=== PATIENT | male | born 1945 | race Caucasian/White ===

== ENCOUNTER 2020-06-17 06:53 | Outpatient (NON) | payer MEDICARE, SELFPAY ==
[2020-06-18 13:43] LABS: SARS-CoV-2 RNA PCR Negative
== END 2020-06-17 06:54 ==
PROVIDERS: Visit Provider Physician Assistant Medical
DX: Z20.828 Contact with and (suspected) exposure to other viral communicable diseases (principal); R09.81 Nasal congestion
CPT/HCPCS: 87635; C9803; U0003

== ENCOUNTER 2021-08-08 01:05 | Day surgery (SDC) | payer MEDICARE, SELFPAY ==
[2021-07-24 13:28] VITALS: BMI 31.4
[2021-08-08 08:09] VITALS: BP 149/95; PULSE 59; RESP 18; TEMP 35.9; O2SAT 100
[2021-08-08] MEDS: LACTATED RINGERS 1,000 ML 150 ML IV CONT (08:15)
--- NOTE | 2021-08-08 08:18 | WPDANESEPPF ---
Anes - Initial Pre Proc Eval Procedure: Operation Date: 08/08/21 09:30 Proposed Procedures p Colonoscopy - Gatito Regalado MD Date/Time: 08/08/21 08:18 Surgeon: Gatito Regalado MD Pre Op Diagnosis: positive cologuard Patient Data Age: 76 Gender: M Height: 1.85 m Weight: 107.1 kg Last Vital Signs Temp 35.9 C L 08/08/21 08:09 Pulse 59 L 08/08/21 08:09 Resp 18 08/08/21 08:09 BP 149/95 H 08/08/21 08:09 Pulse Ox 100 08/08/21 08:09 Allergies Allergy/AdvReac Type Severity Reaction Status Date / Time No Known Allergies Allergy Verified 08/08/21 08:08 Home Medications Medication Instructions Recorded Confirmed Type amlodipine 5 mg tablet See Rx Instructions .ROUTE 10/11/20 08/08/21 Rx .COMPLEX #90 tablet lisinopril 20 mg tablet See Rx Instructions .ROUTE 10/11/20 08/08/21 Rx .COMPLEX #90 tablet allopurinol 300 mg tablet See Rx Instructions .ROUTE 10/31/20 08/08/21 Rx .COMPLEX #90 tablet Patient hx anesthesia problems: none Family hx anesthesia problems: none Results Review: All pre-operative results and documents have been reviewed as part of the pre-operative evaluation. [facility] Past Medical History Medical History Basal cell carcinoma CKD (chronic kidney disease) stage 3, GFR 30-59 ml/min Obesity (BMI 30.0-34.9) Rosacea, acne Surgical History Surgical History (Updated 08/08/21 @ 08:22 by Hang Smart MD) H/O colonoscopy Family History Family History Mother Acute myocardial infarction, Onset Age: 73 Social History Social History Smoking status: Never smoker Alcohol intake: current Drinks per week: 1 Alcohol use details: occasionally Substance use: never Substance use type: does not use Living arrangements: with family Spiritual care concerns: No Anes - Eval Final PreProcedure Day of Procedure 01/18/22 08:18 Patient weight: obese Heart: regular rate and rhythm Lungs: clear to auscultation Airway: Mallampati scale class II and special considerations poor dentition Neurological: alert and oriented Last oral intake: >/= 8 hours ASA classification: III Emergent: no Anesthetic plan: proceed Anesthesia type and monitoring: general GIVS and standard monitoring Results Review: All pre-operative results and documents have been reviewed as part of the pre-operative evaluation. Informed Consent: The patient's anesthetic plan and its attendant risks and benefits were discussed with the patient/family/POA. Questions were solicited and answers provided to the satisfaction of the patient/family/POA.
--- NOTE | 2021-08-08 08:45 | WPDGICN ---
Assessment and Plan Assessment and plan (1) Positive colorectal cancer screening using Cologuard test: Code(s): R19.5 - Other fecal abnormalities Status: Acute Assessment and Plan: Patient presents for screening colonoscopy because of positive Cologuard test. Further recommendations will be given after endoscopy. GI Consult Note Consult date/time: 08/08/21 08:45 HPI: Ibrahima Martinez Jr. is a 76 year old male Presents for screening colonoscopy. Patient recently found to have positive screening Cologuard test. Patient reports that his current weight appetite and bowel movements are normal. He denies abdominal pain. He has had no bleeding. Family history is noncontributory. Review of Systems Review of Systems: All systems reviewed & are unremarkable except as noted in HPI and below PMFSH Past Medical History Medical History (Updated 08/08/21 @ 08:46 by Gatito Regalado MD) Basal cell carcinoma CKD (chronic kidney disease) stage 3, GFR 30-59 ml/min Obesity (BMI 30.0-34.9) Rosacea, acne Surgical History Surgical History (Updated 08/08/21 @ 08:22 by Hang Smart MD) H/O colonoscopy Family History Family History Mother Acute myocardial infarction, Onset Age: 73 Social History Social History Smoking status: Never smoker Alcohol intake: current Drinks per week: 1 Alcohol use details: occasionally Substance use: never Substance use type: does not use Living arrangements: with family Spiritual care concerns: No Meds Home Medications and Allergies Home Medications Medication Instructions Recorded Confirmed Type amlodipine 5 mg tablet See Rx Instructions .ROUTE 10/11/20 08/08/21 Rx .COMPLEX #90 tablet lisinopril 20 mg tablet See Rx Instructions .ROUTE 10/11/20 08/08/21 Rx .COMPLEX #90 tablet allopurinol 300 mg tablet See Rx Instructions .ROUTE 10/31/20 08/08/21 Rx .COMPLEX #90 tablet Allergies Allergy/AdvReac Type Severity Reaction Status Date / Time No Known Allergies Allergy Verified 08/08/21 08:08 Vital Signs Vital Signs - 24 hr 08/08/21 08:09 Temperature 96.7 F L Pulse Rate 59 L Respiratory Rate 18 Blood Pressure 149/95 H Pulse Oximetry 100 Exam Narrative: Physical exam reveals patient to be alert. Vital signs stable. HEENT exam is unremarkable. Patient is anicteric. Lungs are clear to auscultation and percussion. Heart is without murmur or extra sounds. Abdominal exam bowel sounds are present soft nontender with no organomegaly. Digital external rectal exam is normal.
[2021-08-08 09:52] VITALS: BP 131/73; PULSE 51; RESP 19; O2SAT 99
[2021-08-08 10:02] VITALS: BP 115/76; PULSE 54; RESP 16; O2SAT 99
[2021-08-08 10:12] VITALS: BP 148/87; PULSE 59; RESP 19; O2SAT 100
== END 2021-08-08 10:22 | disposition home or self-care (01) ==
PROVIDERS: PCP Family Medicine; Visit Provider Internal Medicine Gastroenterology
PROC: 0DJD8ZZ Inspection of Lower Intestinal Tract, Via Natural or Artificial Opening Endoscopic (ICD-10-PCS; CPT 45378; principal; 2021-08-08 09:30)
DX: R19.5 Other fecal abnormalities (principal); K63.5 Polyp of colon; K57.30 Diverticulosis of large intestine without perforation or abscess without bleeding; K64.8 Other hemorrhoids; Z85.828 Personal history of other malignant neoplasm of skin; N18.30 Chronic kidney disease, stage 3 unspecified; L71.9 Rosacea, unspecified; E66.9 Obesity, unspecified; Z68.31 Body mass index [BMI] 31.0-31.9, adult
CPT/HCPCS: 45385; 88305; J2704; J7120

== ENCOUNTER 2022-07-26 09:38 | Outpatient (CLI) | payer MEDICARE, SELFPAY ==
--- NOTE | 2022-07-26 09:51 | ECHO_ITS ---
Patient Info Name: Ibrahima Martinez Age: 77 years : 1945 Gender: Male Ht: 72 in Wt: 228 lbs BSA: 2.32 m2 HR: 59 bpm BP: 134 / 82 mmHg Technical Quality: Good Exam Date: 07/26/2022 10:16 AM Exam Location: [facility] Patient Status: Outpatient Admit Date: 07/26/2022 Staff Ordering Physician: Alexander Arciniega MD Building Construction Professor: Marie Mcgowan RDCS Attending Provider: Alexander Arciniega MD Referring Physician: Suze MANDUJANO; Exam Type: CA echo doppler color flow Study Info Indications R01.1 - Cardiac murmur, unspecified Complete two-dimensional, color flow and Doppler transthoracic echocardiogram is performed. Summary 1. Complete two-dimensional, color flow and Doppler transthoracic echocardiogram is performed. 2. Left ventricular chamber dimension is normal. 3. Left ventricular systolic function is normal, estimated at 55-60%. 4. The left ventricular diastolic function is grade I diastolic dysfunction. 5. E/e' 10 is mildly elevated. 6. There is mild aortic valve sclerosis. Left Ventricle E/e' 10 is mildly elevated. Left ventricular chamber dimension is normal. Left ventricular systolic function is normal, estimated at 55-60%. The left ventricular diastolic function is grade I diastolic dysfunction. Right Ventricle Right ventricular systolic function is normal and with normal TAPSE 1.8 cm. Right ventricular chamber dimension is normal. Left Atria Left atrial chamber dimension is normal. Right Atria Right atrial chamber dimension is normal. Aortic Valve The aortic valve is trileaflet. There is mild aortic valve sclerosis. There is no aortic valve stenosis. There is no aortic valve regurgitation. Pulmonic Valve There is no pulmonic regurgitation. Mitral Valve There is no mitral valve stenosis. There is no mitral valve regurgitation. Tricuspid Valve There is no tricuspid valve regurgitation. Pericardium/Pleural There is no pericardial effusion. Inferior Vena Cava Normal inferior vena cava with >50% collapse upon inspiration consistent with normal right atrial pressure, 5 mmHg. Aorta The aortic root size at the sinus of Valsalva is normal. Left Ventricular Outflow Tract Name Value Normal LVOT 2D LVOT Diameter 2.3 cm LVOT Doppler LVOT Peak Gradient 4 mmHg LVOT Mean Gradient 2 mmHg LVOT VTI 19 cm LVOT VTI/AV VTI Ratio 0.8 LVOT Stroke Volume 81 ml LVOT CO 5.1 l/min LVOT CI 2.2 l/min/m2 Mitral Valve Name Value Normal MV Doppler MV Peak Gradient 4 mmHg MV Mean Gradient 1 mmHg MV Decel Weakley 243 cm
== END 2022-07-26 09:39 | disposition home or self-care (01) ==
LOC: ANHCARD 09:39
PROVIDERS: PCP Family Medicine; Visit Provider Family Medicine
DX: R01.1 Cardiac murmur, unspecified (principal); R42 Dizziness and giddiness; I35.8 Other nonrheumatic aortic valve disorders
CPT/HCPCS: 93306

== ENCOUNTER 2022-11-21 09:53 | Outpatient (CLI) | payer MEDICARE, SELFPAY | END 2022-11-21 09:54 | disposition home or self-care (01) | LOC: ANHAUDIO 09:55 | PROVIDERS: PCP Family Medicine; Visit Provider Family Medicine | DX: H90.3 Sensorineural hearing loss, bilateral (principal) | CPT/HCPCS: 92557; 92567 ==

== ENCOUNTER 2022-11-23 08:36 | Outpatient (CLI) | payer MEDICARE, SELFPAY ==
--- NOTE | ~2022-11-23 | MR_ITS ---
MRI of the brain Clinical History: Unsteady gait Technique: Axial and sagittal T1-weighted images were acquired. These were followed by axial T2-weigh vilma, diffusion weighted, gradient, and FLAIR images. Findings: There is no acute infarct or intracranial hemorrhage. There are mild to moderate chronic mi crovascular ischemic changes in the periventricular white matter bilaterally, and in the erich. Ventricles and subarachnoid spaces are dilated. Orbits are unremarkable. There is minimal mucosal thi ckening in the frontal sinuses and left sphenoid sinus. Major intracranial flow voids are intact. Pituitary gland is prominent, especially given patient age, measuring 2.0 x 1.4 cm in dimensions on s agittal midline image (sagittal T1-weighted image 15). There is mild extension of the gland into the suprasellar cistern. Sagittal midline structures otherwise are intact. IMPRESSION: Probable enlarged pituitary gland, with minimal extension to the suprasellar cistern, as detailed abo ve. Pituitary mass is a consideration. Dedicated pre and postcontrast pituitary MR should be strongly considered to better evaluate for mass lesion, if clinically indicated. Mild to moderate chronic microvascular ischemic changes, as above. Reviewed, dictated and finalized at location . IMPRESSION: Probable enlarged pituitary gland, with minimal extension to the suprasellar ci sal, as detailed above. Pituitary mass is a consideration. Dedicated pre and postcontrast pituitary MR should be strongly considered to better evaluate for mass lesion, if clinically indicated. Mild to moderate chronic microvascular ischemic changes, as above.
== END 2022-11-23 08:37 | disposition home or self-care (01) ==
PROVIDERS: PCP Family Medicine; Visit Provider Family Medicine
DX: R27.0 Ataxia, unspecified (principal); R93.0 Abnormal findings on diagnostic imaging of skull and head, not elsewhere classified
CPT/HCPCS: 70551

== ENCOUNTER 2022-11-30 08:43 | Outpatient (CLI) | payer MEDICARE, SELFPAY ==
--- NOTE | ~2022-11-30 | MR_ITS ---
EXAMINATION: MR pituitary wo/w con DATE: 11/30/2022 10:11 INDICATION: Other symptoms and signs involving cognition. Large pituitary. TECHNIQUE: Magnetic resonance imaging (MRI) of the brain and brainstem was performed without and with 20 mL MultiHance intravenous contrast. COMPARISON: Brain MRI 11/23/2022 FINDINGS: The pituitary is enlarged with height of 16 mm. There is a 16 x 12 x 20 mm hypoenhancing ma ss in the pituitary. No cavernous sinus invasion. There is leftward deviation of the infundibulum. Th ere is no acute ischemic infarct or intracranial hemorrhage. There are scattered areas of nonspecific increased T2-weighted signal intensity in the cerebral white matter and erich. The ventricles are nor mal in size. There is mild mucosal thickening in the paranasal sinuses. The orbits are normal. There is a trace right mastoid effusion. IMPRESSION: 1. 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 2. Moderate nonspecific cerebral white matter disease and pontine disease, which likely represents ch ronic small vessel ischemic disease. Reviewed, dictated and finalized at location E. IMPRESSION: 1. 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 2. Moderate nonspecific cerebral white matter disease and pontine disease, whic h likely represents chronic small vessel ischemic disease.
== END 2022-11-30 08:44 | disposition home or self-care (01) ==
PROVIDERS: PCP Family Medicine; Visit Provider Family Medicine
DX: E23.6 Other disorders of pituitary gland (principal); R41.89 Other symptoms and signs involving cognitive functions and awareness; R90.82 White matter disease, unspecified
CPT/HCPCS: 70553; A9577

== ENCOUNTER 2023-02-09 15:29 | Inpatient (IN) | payer MEDICARE, SELFPAY ==
[2023-02-09] VITALS (7 sets, daily range): BP systolic 119–143; BP diastolic 64–85; PULSE 69–119; RESP 18–20; TEMP 36.8–38.6; O2SAT 97–100; BMI 29.2
--- NOTE | ~2023-02-09 | CT_ITS ---
EXAMINATION: CT brain wo con DATE: 02/09/2023 15:47 INDICATION: r/o CVA . TECHNIQUE: Computed tomography (CT) of the head was performed without intravenous contrast. The mA wa s adjusted according to patient size. Iterative reconstruction technique was employed. The dose-lengt h product was 1210.67 mGy-cm. COMPARISON: MRI brain 11/23/2022; MR pituitary 11/30/2022. FINDINGS: No acute intracranial hemorrhage or extra-axial fluid collection. No hydrocephalus or herniation. Enlarged pituitary gland. No acute ischemic infarct. Unremarkable dural venous sinus attenuation. No acute osseous abnormality. Mucosal thickening and aerated secretions in the inferior bilateral frontal sinuses. Mucosal thickeni ng in the ethmoid air cells. Mucosal thickening and aerated secretions in the left sphenoid sinus. Re tention cyst or polyp in the right sphenoid sinus. The remaining aerated spaces are clear. Moderate atrophy and chronic white matter change. Atherosclerotic intracranial calcification. IMPRESSION: No acute intracranial process. Paranasal sinus findings may reflect acute sinusitis in the appropriate clinical context. 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 Reviewed, dictated and finalized at location K. IMPRESSION: No acute intracranial process. Paranasal sinus findings may reflect acute sinusitis in the appropriate clinica l context. 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
--- NOTE | ~2023-02-09 | XR_ITS ---
MODIFIED ESOPHAGRAM HISTORY: Weakness and dysphagia TECHNIQUE: Modified barium esophagram was performed by speech pathologist under radiologist fluorosco pic guidance. This was recorded on tape. The exam was reviewed on 02/10/2023 11:43 CDT. The DAP for this procedure was 0.5 Gycm2. Fluoroscopy time is 0.6 minutes. FINDINGS: Lateral projection of the cervical spine demonstrates reversal of normal cervical lordosi s. There is reduced laryngeal elevation, laryngeal adduction, tongue base retraction and pharyngeal s queeze. There is reduced lingual movement. There is residue in the vallecula, piriform sinus and phar yngeal wall. There is laryngeal penetration with thin and thick liquids with aspiration. IMPRESSION: 1: Laryngeal penetration with aspiration with multiple consistencies. 2: Please refer to speech pathologist report for additional detail. Reviewed, dictated and finalized at location A.
--- NOTE | ~2023-02-09 | XR_ITS ---
EXAMINATION: XR chest 1V portable Exam Date/Time: 02/09/2023 16:29 CDT HISTORY: r/o CVA Comparison: None. RESULT: Lines, tubes, and devices: None. Lungs and pleura: Senescent changes, otherwise clear. Cardiomediastinal silhouette: Unremarkable. Other: No acute osseous or upper abdominal finding. IMPRESSION: No acute cardiopulmonary process. Reviewed, dictated and finalized at location K.
--- NOTE | ~2023-02-09 | MR_ITS ---
EXAMINATION: MR brain/brain stem wo con DATE: 02/10/2023 07:15 INDICATION: Neurologic signs and symptoms TECHNIQUE: Magnetic resonance imaging (MRI) of the brain and brainstem was performed without intraven ous contrast. Sequences included sagittal and axial T1-weighted SE, axial diffusion-weighted FS SE, a xial T2*-weighted GRE, axial T2-weighted FLAIR Propeller, and axial T2-weighted Propeller. Apparent d iffusion coefficient (ADC) maps were created. COMPARISON: CT dated 02/09/2023. FINDINGS: Brain parenchymal volume is normal for age. No ventriculomegaly or midline shift. No acute infarction, hemorrhage, mass or mass effect. Structures of the posterior fossa including the seventh/ 8th cranial nerve complexes are normal. There are scattered mild periventricular and subcortical whit e matter changes, most likely related to small vessel ischemic disease (microangiopathy). Pituitary g land is enlarged. There is a focal area of abnormal signal intensity in the pituitary, corresponding to a pituitary macroadenoma seen on prior MRI dated 11/30/2022 midline sagittal images demonstrate a n ormal craniovertebral junction. Corpus callosum is atrophic. No ventriculomegaly or midline shift. St ructures of the posterior fossa including 7/8th cranial nerve complexes are normal. Orbits are symmet mckenna without disconjugate gaze. There is mild mucosal thickening of the frontal, ethmoid and sphenoid sinuses. IMPRESSION: 1. No acute intracranial abnormality. 2: Pituitary macroadenoma unchanged allowing for differences of technique. 3: Mild sinus disease. 4: Chronic age-related findings. Reviewed, dictated and finalized at location A.
--- NOTE | ~2023-02-09 | CT_ITS ---
EXAMINATION: CTA brain carotid DATE: 02/09/2023 16:21 INDICATION: r/o CVA TECHNIQUE: Computed tomographic angiography (CTA) of the head and neck was performed with 100 mL Omni paque-350 intravenous contrast. Automated exposure control and iterative reconstruction technique wer e employed. The dose-length product was 1278.76 mGy-cm. Maximum intensity projection and volume rende red 3D-reconstructions were created by the technologist on a separate workstation. COMPARISON: CT brain same date. FINDINGS: CTA HEAD: No large vessel occlusion, aneurysm, high flow vascular malformation, nidus or extravasation. CTA NECK: Aortic arch and proximal great vessels: Mild ectasia and arch calcification. Normal arch anatomy. Right common carotid, carotid bifurcation, and internal carotid artery: Motion artifact partially obs cures the bifurcation. NASCET measurements not attempted. No definite calcified or noncalcified plaqu e is detected. Left common carotid, carotid bifurcation, and internal carotid artery: Mild calcified and noncalcifie d plaque.There is 0% stenosis of the proximal left internal carotid artery relative to normal distal artery lumen diameter (NASCET criteria). Vertebral arteries: Calcified and noncalcified plaque at the origin of the left vertebral artery caus ing mild stenosis. No significant (greater than 75%) plaque or stenosis. Other findings: Multilevel degenerative disc disease and facet arthropathy in the cervical spine. IMPRESSION: No large vessel occlusion. No significant carotid or vertebral artery stenosis, noting that evaluation of the right bifurcation is limited by motion artifact. Reviewed, dictated and finalized at location K.
--- NOTE | 2023-02-09 15:29 | ECG_ITS ---
Measurements Intervals Nice Rate: 70 P: 50 ME: 227 QRS: -24 QRSD: 106 T: 82 QT: 432 QTc: 467 Interpretive Statements SINUS RHYTHM WITH FIRST DEGREE AV BLOCK EARLY PRECORDIAL R/S TRANSITION ST-T WAVE ABNORMALITY IN ANTERIOR LEADS- CONSIDER ISCHEMIA BASELINE ARTIFACT- I, II, III, AVF, V1-V6 ABNORMAL ECG NO PREVIOUS ECG AVAILABLE FOR COMPARISON Electronically Signed On 02-09-2023 21:57:12 CDT by Cody Contreras D.O.
--- NOTE | 2023-02-09 15:31 | ED.NEUROSD ---
HPI - Neuro Symptoms/Deficit General Chief Complaint: Suspected CVA Stated Complaint: code stroke Time Seen by Provider: 02/09/23 15:31 History of Present Illness HPI Narrative: 77 year old male presented with acute onset confustion. Per EMS, patient was at a bb today when all of a sudden he had acute onset confusion. Family were concerned, so called EMS. Last well known time 3:00pm. POC glucose 80s. ROS limited due to condition Past Medical History: pituitary tumor, HTN Medications: amlodipine Allergies: no known drug allergies Related Data Home Medications Medication Instructions Recorded Confirmed levothyroxine 75 mcg capsule 75 mcg PO DAILY 02/04/23 02/04/23 Allergies Allergy/AdvReac Type Severity Reaction Status Date / Time No Known Allergies Allergy Verified 02/09/23 16:32 [facility] Past Medical History Medical History Basal cell carcinoma CKD (chronic kidney disease) stage 3, GFR 30-59 ml/min Obesity (BMI 30.0-34.9) Rosacea, acne Surgical History Surgical History H/O colonoscopy Family History Family History Mother Acute myocardial infarction, Onset Age: 73 Social History Social History Smoking status: Never smoker Alcohol intake: current Drinks per week: 1 Alcohol use details: occasionally Substance use: never Substance use type: does not use Lack of Transportation: No Lack of Food: Never True Current Housing: I Have Housing Concerned About Future Housing: No Difficulty Paying Gas/Electric Bills: No Difficulty Paying for Meds: No Currently Unemployed: No Education: Master's Degree or Higher Difficulty w/ Childcare or Family Care: No Living arrangements: with family Spiritual care concerns: No Exam Narrative: General: Alert, calm and cooperative, no acute distress, phonating, sitting comfortably during visit HEENT: Pupils equal round and reactive to light, extra ocular movements intact, no conjunctival injection, head atraumatic, neck supple without meningismus Cardiovascular: Regular rate and rhythm, no visible jugular venous distension Respiratory: Lungs clear to auscultation bilaterally, no wheezing/rales/rhonchi Abdominal: soft, non-tender, non-distended, no guarding, no rebound/peritoneal signs, no costovertebral tenderness to palpation Back: no midline tenderness to palpation, no step offs Extremities: No edema, palpable peripheral pulses, warm, well perfused, no tenderness to bilateral calves Neurological: Alert, moving all extremities symmetrically, mumbling Course Reevaluation(s) Reevaluation #1: Further information obtained from family. They report that the patient was in his usual state of health until 3:00 pm, at this time, he began looking in one direction and moving his extremities without purpose. They report that patient had recent diagnosis of pituitary tumor diagnosed several months prior. Date: 02/09/23 Time: 15:43 Reevaluation #2: Patient reassessed after coming back from CT - moving all extremities symmetrically, holding extremities up on request. Patient with intermittent confusion and intermittently following commands. Seizure and post ictal state more likely at this time Date: 02/09/23 Time: 16:19 Consultations Consultation #1: [facility] stroke team called, given patient has established care there and family preference. Date: 02/09/23 Time: 16:16 Consultation #2: Case discussed Dr Perry at [facility], not concerned for stroke at this time. Tox vs infectious vs seizure. Reports appropriate for admission and further neurology follow up in [place]. Date: 02/09/23 Time: 16:27 Consultation #3: CAse discussed with Neurologist israel, agrees with admission and MRI + EEG here Date: 02/09/23 Time: 17:01 Vi
[2023-02-09 16:29] LABS: Alanine Aminotransferase 21 U/L (6-50); Alkaline Phosphatase 40 U/L (38-126); Anion Gap 13 mmol/L (8-16); Aspartate Amino Transferase 27 U/L (17-59); Bilirubin,Total 2.7 mg/dL (0.2-1.3); Blood Urea Nitrogen 24 mg/dL (9-20); Calcium 9.7 mg/dL (8.4-10.2); Carbon Dioxide 18 mmol/L (22-30); Chloride 106 mmol/L (98-107); Estimated CRCL calculation 37 ml/min; Estimated Glomerular Filt Rate 42; Glucose 102 mg/dL (65-110); Potassium 3.9 mmol/L (3.4-5.0); Sodium 137 mmol/L (137-145)
[2023-02-09 16:40] LABS: Troponin I < 0.012 ng/mL (0.000-0.034)
[2023-02-09 16:57] LABS: Basophils Percent Auto 0.7 % (0.2-1.2); Eosinophils Absolute Auto 0.1 K/mm3 (0-0.3); Eosinophils Percent Auto 2.6 % (0-4.4); Hematocrit 27.6 % (42.0-52.0); Hemoglobin 10.3 g/dL (14.0-18.0); Immature Granulocyte Absolute 0.02 K/mm3 (0.00-0.031); Immature Granulocyte Percent A 0.5 % (0-0.5); Lymphocytes Absolute Auto 1.42 K/mm3 (0.9-3.2); Lymphocytes Percent Auto 32.9 % (18.3-44.2); Mean Corpuscular HGB Conc 37.3 g/dl (32-36); Mean Corpuscular Volume 101.8 fl (80-100); Mean Platelet Volume 8.6 fl (7.4-10.4); Monocytes Absolute Auto 0.6 K/mm3 (0.1-0.6); Monocytes Percent Auto 13.2 % (2.6-8.5); Neutrophils Absolute Auto 2.2 K/mm3 (1.3-6.7); Neutrophils Percent Auto 50.1 % (45.5-73.1); Platelet Count Result 168 k/mm3 (150-375); Red Blood Count 2.71 M/mm3 (4.6-6.20); Red Cell Distribution Width 13.2 % (11.5-14.5); White Blood Count 4.3 K/mm3 (4.5-10.0)
[2023-02-09 17:08] LABS: INR 1.1; Prothrombin Time 14.4 Seconds (11.1-14.7)
[2023-02-09 17:09] LABS: Partial Thromboplastin Time 35.7 SECONDS (22.3-36.8)
[2023-02-09 17:50] LABS: Appearance Urine Clear (Clear); Bilirubin Urine Negative (Negative); Blood Urine Negative (Negative); Color Urine Yellow (Yellow); Glucose Urine UA Negative (Negative); Ketones Urine Negative (Negative); Leukocyte Esterase Ur Negative LEU/UL (Negative); Nitrate Urine Negative (Negative); Protein Urine Negative (Negative); Specific Grav Ur 1.017 (1.001-1.035); pH Urine 5.5 (5.0-9.0)
[2023-02-09 17:51] LABS: Add Urine Microscopic? NO
--- NOTE | 2023-02-09 18:33 | PC.NURSE ---
This patient, Ibrahima Martinez , was admitted to 3 [facility] Surg Room 326-01. Patient/family oriented to hospital policies and general routines including ID bracelet, bed and alarms, visiting hours, pain management, procedures, bathroom and other care routines, personal items, smoking policy, room service/diet, and visiting hours. Information on how to activate the Rapid Response Team has been discussed. Patient/Family are encouraged to report perceived risks to care and to ask questions if they do not understand what they are told or what they should do.
--- NOTE | 2023-02-09 20:47 | PM.IMHP ---
H&P: HPI History of Present Illness Date/Time: 02/09/23 20:47 Chief Complaint: Suspected CVA Narrative: This is a 77-year-old male patient who has a history of a pituitary mass. The patient is being monitored outpatient by another neurologist. The patient has had decreased oral intake and became confused at a barbecue today. He had a sudden onset of confusion. The son is at the bedside and stated that the patient typically has an intact long-term memory but has been having difficulty with short-term memory recently. Patient's last known normal was around 3:00 a.m. today. His blood glucose was in the 80s. His H&H is 10.3 and 27.6. His BUN is 24 creatinine 1.6 today which is his normal. GFR is in the 40s which is his baseline. Head CT was read as the followingo acute intracranial process. Paranasal sinus findings may reflect acute sinusitis in the appropriate clinical context. 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 Head and neck CTA was read as a follows No large vessel occlusion. No significant carotid or vertebral artery stenosis, noting that evaluation of the right bifurcation is limited by motion artifact. Chest x-ray was read as no acute cardiopulmonary process. It was noted that the patient's normal state of being was at 3:00 p.m. after that time the patient began looking in 1 direction and moving his extremities without purpose. It was also reported that [facility] stroke team was called and ER doctor spoke with Dr. Perry at [facility]. It was reported that the patient was appropriate for him admission here and further neurology follow-up at [place]. Neurology has been consulted here and agreed to evaluate the patient and be the consult.. The patient is being admitted to inpatient status on the date of service of 02/09/2023. [facility] Past Medical History Medical History (Updated 02/09/23 @ 22:58 by Tram Coe NP) Basal cell carcinoma CKD (chronic kidney disease) stage 3, GFR 30-59 ml/min Hypertension Hypothyroidism Obesity (BMI 30.0-34.9) Rosacea, acne Surgical History Surgical History H/O colonoscopy History of removal of cyst Family History Family History Mother Acute myocardial infarction, Onset Age: 73 Social History Social History (Updated 02/09/23 @ 22:58 by Tram Coe NP) Social History: The patient has 2 sons. He lives with his Debbie who is the durable power patent prosecution attorney for healthcare. 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 He is a lifelong nonsmoker. He does not use alcohol marijuana or illicit drugs. Code status full code Smoking status: Never smoker Alcohol intake: current Drinks per week: 1 Alcohol use details: occasionally Substance use: never Substance use type: does not use Lack of Transportation: No Lack of Food: Never True Current Housing: I Have Housing Concerned About Future Housing: No Difficulty Paying Gas/Electric Bills: No Difficulty Paying for Meds: No Currently Unemployed: No Education: Master's Degree or Higher Difficulty w/ Childcare or Family Care: No Living arrangements: with family Spiritual care concerns: No Meds Home Medications and Allergies Home Medications Medication Instructions Recorded Confirmed Type levothyroxine 75 mcg capsule 75 mcg PO DAILY 02/04/23 02/09/23 History allopurinol 300 mg tablet 300 mg PO DAILY 02/09/23 02/09/23 History amlodipine 5 mg tablet 2.5 mg PO DAILY 02/09/23 02/09/23 History lisinopril 20 mg tablet 20 mg PO DAILY 02/09/23 02/09/23 History testosterone 1.62 % (20.25 mg/1.25 40.5 mg topical DAILY 02/09/23 02/09/23 History gram) transdermal gel packet Allergies Allergy/AdvReac Type Severity Reaction Status Date / Time No Known Allergies Allergy Verified 02/09/23 16:32 Vital Si
[2023-02-09] MEDS: IBUPROFEN IV 400 MG in SODIUM CHLORIDE 0.9% IV 100 ML 200 MG IVPB (23:42)
[2023-02-09] MEDS: SODIUM CHLORIDE 0.9% IV 1,000 ML 100 ML IV CONT (23:42)
[2023-02-10] VITALS (7 sets, daily range): BP systolic 113–116; BP diastolic 66; PULSE 58–71; RESP 16–20; TEMP 36–36.9; O2SAT 97–100
[2023-02-10] MEDS: LEVOTHYROXINE SODIUM INJ 100 MCG/5 ML VIAL 36 MCG IV PUSH (05:53)
--- NOTE | 2023-02-10 06:55 | PC.NURSE ---
Patient to MRI via stretcher.
[2023-02-10 07:26] LABS: Basophils Percent Auto 0.7 % (0.2-1.2); Eosinophils Absolute Auto 0.1 K/mm3 (0-0.3); Eosinophils Percent Auto 1.9 % (0-4.4); Hematocrit 27.4 % (42.0-52.0); Immature Granulocyte Absolute 0.02 K/mm3 (0.00-0.031); Immature Granulocyte Percent A 0.5 % (0-0.5); Lymphocytes Absolute Auto 1.66 K/mm3 (0.9-3.2); Lymphocytes Percent Auto 39.6 % (18.3-44.2); Mean Corpuscular HGB Conc 36.5 g/dl (32-36); Mean Corpuscular Hemoglobin 38.2 pg (26-34); Mean Corpuscular Volume 104.6 fl (80-100); Mean Platelet Volume 9.4 fl (7.4-10.4); Monocytes Absolute Auto 0.6 K/mm3 (0.1-0.6); Monocytes Percent Auto 14.3 % (2.6-8.5); Neutrophils Absolute Auto 1.8 K/mm3 (1.3-6.7); Platelet Count Result 168 k/mm3 (150-375); Red Blood Count 2.62 M/mm3 (4.6-6.20); Red Cell Distribution Width 13.4 % (11.5-14.5); White Blood Count 4.2 K/mm3 (4.5-10.0)
[2023-02-10 07:33] LABS: Alanine Aminotransferase 16 U/L (6-50); Albumin Level 3.4 g/dL (3.5-5.1); Alkaline Phosphatase 31 U/L (38-126); Anion Gap 11 mmol/L (8-16); Aspartate Amino Transferase 30 U/L (17-59); Bilirubin,Total 2.7 mg/dL (0.2-1.3); Blood Urea Nitrogen 25 mg/dL (9-20); Calcium 8.9 mg/dL (8.4-10.2); Carbon Dioxide 18 mmol/L (22-30); Chloride 109 mmol/L (98-107); Estimated CRCL calculation 31 ml/min; Estimated Glomerular Filt Rate 34; Glucose 88 mg/dL (65-110); Magnesium 1.9 mg/dL (1.6-2.3); Potassium 3.9 mmol/L (3.4-5.0); Sodium 138 mmol/L (137-145)
[2023-02-10 08:04] LABS: Thyroid Stimulating Hormone Reflex 0.159 uIU/mL (0.465-4.68)
[2023-02-10] MEDS: levETIRAcetam 500MG/NACL 100ML 500 MG/100 ML BAG 400 MG IVPB ×2 (08:31→21:03)
--- NOTE | 2023-02-10 11:20 | PCSTNOTE ---
Modified barium swallow study completed. Oral peripheral examination results within normal limits. Trials of thin, pureed, mixed, and solid consistencies were given. Results all within normal limits. Recommendations: regular diet with thin liquids, no speech therapy recommended. Thank you for the referral of this patient.
--- NOTE | 2023-02-10 11:37 | PHAR ---
HOME MEDICATIONS VERIFIED BY PHARMACY TESTOSTERONE GEL 1.62% 20.25 MG/PUMP
--- NOTE | 2023-02-10 11:40 | PM.IMPN ---
Progress Note: A&P Assessment and Plan (1) Cognitive impairment: Code(s): R41.89 - Other symptoms and signs involving cognitive functions and awareness Status: Acute Assessment and Plan: The patient's son stated that the patient has his long-term memory intact but his short-term memory has been fading. The patient has been following with [facility] for his pituitary tumor. Neurology has been consulted. It is felt that this is possibly a seizure. Patient started on IV Keppra 500 mg every 12 hours. eeg , MRI, and echo have been ordered. MRI revealing unchanged pituitary tumor (2) Pituitary mass: Code(s): E23.6 - Other disorders of pituitary gland Status: Acute Assessment and Plan: The patient had been followed by a physician at [facility]. The patient has a pituitary gland tumor and according to the son the patient has been treated with testosterone and levothyroxine. We will continue with those but is my understanding the patient is not been taking in p.o. fluids very well. So I will change his levothyroxine to IV. The patient may need require transfer to [facility] for further evaluation. (3) Benign essential hypertension: Code(s): I10 - Essential (primary) hypertension Status: Acute Assessment and Plan: Amlodipine and lisinopril Continue. P.r.n. hydralazine has been ordered. Subjective Date/time seen: 02/10/23 11:40 Interval history: patient has been cleared by speech therapy and can be put on regular diet. He is alert oriented x4. He is working with PT and OT and is doing well. Awaiting Neurology evaluation for possible seizure. MRI negative for acute stroke. He denies dizziness, lightheadedness, visual changes, new extremity weakness, chest pain shortness a breath. Review of Systems Review of Systems: All systems reviewed & are unremarkable except as noted in HPI and below Exam Narrative: GENERAL: Comfortable, no acute distress HENMT: moist mucous membranes EYES: EOM intact b/l NECK: no lymphadenopathy RESPIRATORY: clear to auscultation CARDIO: RRR GI: soft, nontender, bowel sounds present SKIN: no rashes EXTREMITIES: no edema, redness or tenderness Objective Data Vital Signs Vital Signs: Vital Signs - 24 hr 02/09/23 15:30 02/09/23 16:24 02/09/23 16:24 Temperature 98.3 F Pulse Rate 71 74 69 Respiratory Rate 20 20 Blood Pressure 143/81 H 143/81 H Pulse Oximetry 100 100 Oxygen Delivery Room Air 02/09/23 16:27 02/09/23 18:27 02/09/23 18:52 Temperature 98.2 F Pulse Rate 75 75 119 H Respiratory Rate 20 20 20 Blood Pressure 143/81 H 135/85 119/64 Pulse Oximetry 100 97 99 Oxygen Delivery 02/09/23 20:00 02/09/23 22:00 02/10/23 00:42 Temperature 101.4 F H 98.4 F Pulse Rate 74 Respiratory Rate 18 Blood Pressure 133/75 Pulse Oximetry 100 Oxygen Delivery Room Air 02/09/23 20:00 02/10/23 00:00 02/10/23 04:00 Temperature Pulse Rate 74 71 62 Respiratory Rate Blood Pressure Pulse Oximetry Oxygen Delivery 02/10/23 06:00 02/10/23 09:23 02/10/23 08:00 Temperature 98 F Pulse Rate 64 Respiratory Rate 20 Blood Pressure Pulse Oximetry 97 Oxygen Delivery Room Air Room Air 02/10/23 09:59 Temperature Pulse Rate Respiratory Rate Blood Pressure Pulse Oximetry 98 Oxygen Delivery Room Air Intake/Output Intake/Output: Intake & Output 02/07/23 02/08/23 02/09/23 02/10/23 23:59 23:59 23:59 23:59 Intake Total 115 229 Output Total 275 Balance 115 -46 Meds/Results Medications: Active Medications Generic Name Dose Route Start Last Admin Trade Name Freq PRN Reason Stop Dose Admin Hydralazine HCl 10 mg 02/09/23 22:58 Hydralazine Hcl 20 Mg/Ml Vial IV PUSH Q8H PRN Blood Pressure - High Ibuprofen 400 mg/ Sodium 104 mls @ 200 mls/hr 02/09/23 22:33 02/10/23 00:14 Chloride IVPB Infused Q6H PRN Infusion Pain Rated
--- NOTE | 2023-02-10 12:54 | PCSTNOTE ---
Modified barium swallow study results within normal limits. Recommendation: regular diet texture with thin liquids. Thank you for the referral of this patient.
[2023-02-10 15:29] LABS: Free T4 Free Thyroxine Reflex 1.61 ng/dL (0.78-2.19)
[2023-02-10 16:41] LABS: Total Triiodothyronine (T3) 1.52 NG/ML (0.97-1.69)
--- NOTE | 2023-02-10 16:54 | WPDNEURCNPN ---
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 is a 77 year old male admitted to the hospital through the emergency room for the complaints of acute onset of confusion EMS were called at the scene and patient was brought to the hospital emergency room with documented blood sugar of 80s in addition to taking levothyroxine 75 mg daily , and history of never smoking, current alcohol intake or only 1 drink per week and history of intact long-term memory but having some difficulties with a short memory recently also previously documented pituitary mass likely macroadenoma but CTA this time documenting no large vessel occlusion be MARY was consulted for the possibility for stroke patient was admitted here for further evaluation and current home medications include antihypertensive lisinopril 20 mg daily amlodipine 5 mg that is half tablet daily allopurinol 300 daily and levothyroxine 75 micro g daily initial vital signs normal, initial CT of the head documented the previously documented pituitary mask likely macroadenoma but no evidence of any stroke or bleed Review of Systems Review of Systems: All systems reviewed & are unremarkable except as noted in HPI and below PMFSH Past Medical History Medical History (Updated 02/10/23 @ 16:59 by Aden Armendariz MD) Basal cell carcinoma CKD (chronic kidney disease) stage 3, GFR 30-59 ml/min Hypertension Hypothyroidism Obesity (BMI 30.0-34.9) Rosacea, acne Surgical History Surgical History H/O colonoscopy History of removal of cyst Family History Family History Mother Acute myocardial infarction, Onset Age: 73 Social History Social History (Updated 02/09/23 @ 22:58 by Tram Coe NP) Social History: The patient has 2 sons. He lives with his Debbie who is the durable power attorney recruiter for healthcare. 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 He is a lifelong nonsmoker. He does not use alcohol marijuana or illicit drugs. Code status full code Smoking status: Never smoker Alcohol intake: current Drinks per week: 1 Alcohol use details: occasionally Substance use: never Substance use type: does not use Lack of Transportation: No Lack of Food: Never True Current Housing: I Have Housing Concerned About Future Housing: No Difficulty Paying Gas/Electric Bills: No Difficulty Paying for Meds: No Currently Unemployed: No Education: Master's Degree or Higher Difficulty w/ Childcare or Family Care: No Living arrangements: with family Spiritual care concerns: No Meds Home Medications and Allergies Home Medications Medication Instructions Recorded Confirmed Type levothyroxine 75 mcg capsule 75 mcg PO DAILY 02/04/23 02/09/23 History allopurinol 300 mg tablet 300 mg PO DAILY 02/09/23 02/09/23 History amlodipine 5 mg tablet 2.5 mg PO DAILY 02/09/23 02/09/23 History lisinopril 20 mg tablet 20 mg PO DAILY 02/09/23 02/09/23 History testosterone 1.62 % (20.25 mg/1.25 40.5 mg topical DAILY 02/09/23 02/09/23 History gram) transdermal gel packet Allergies Allergy/AdvReac Type Severity Reaction Status Date / Time No Known Allergies Allergy Verified 02/09/23 16:32 Vital Signs Vital Signs - 24 hr 02/09/23 18:27 02/09/23 18:52 02/09/23 20:00 Temperature 36.8 C Pulse Rate 75 119 H Respiratory Rate 20 20 Blood Pressure 135/85 119/64 Pulse Oximetry 97 99 Oxygen Delivery Room Air
[2023-02-11] VITALS: PULSE 66
--- NOTE | 2023-02-11 | ECHO_ITS ---
Patient Info Name: Ibrahima Martinez Age: 77 years : 1945 Gender: Male Ht: 73 in Wt: 215 lbs BSA: 2.26 m2 HR: 60 bpm BP: 110 / 65 mmHg Heart Rhythm: Sinus Rhythm Technical Quality: Fair Exam Date: 02/11/2023 12:55 PM Exam Location: [facility] Pulmonary Exam Room: 332 Patient Status: Inpatient Admit Date: 02/09/2023 Staff Ordering Physician: Tram Coe NP Director Of Accounts Payable: Paula Fernandez RDCS Attending Provider: Ray Brandt MD Referring Physician: Carolin DURHAM; Exam Type: CA echo doppler w bubble study Study Info Indications - STROKE SYMPTOMS Complete two-dimensional, color flow and Doppler transthoracic echocardiogram is performed with agitated saline. Summary 1. Left ventricular chamber dimension is normal. 2. Left ventricular systolic function is normal, estimated at 65-70%. 3. There is mildly increased left ventricular wall thickness. 4. The left ventricular diastolic function is grade I diastolic dysfunction. 5. Right ventricular chamber dimension is mildly enlarged. 6. Right ventricular systolic function is normal. 7. Right atrial chamber dimension is moderately enlarged. 8. Intact interatrial septum visualized by color flow and agitated saline imaging. Negative bubble study. 9. There is mild mitral valve regurgitation. 10. There is mild tricuspid valve regurgitation. 11. There is mild pulmonic regurgitation. 12. There is small anterior pericardial effusion. Left Ventricle Left ventricular chamber dimension is normal. Left ventricular systolic function is normal, estimated at 65-70%. There is mildly increased left ventricular wall thickness. The left ventricular diastolic function is grade I diastolic dysfunction. Right Ventricle Right ventricular chamber dimension is mildly enlarged. Right ventricular systolic function is normal. Left Atria Left atrial chamber dimension is normal. Right Atria Right atrial chamber dimension is moderately enlarged. Atrial Septum Intact interatrial septum visualized by color flow and agitated saline imaging. Negative bubble study. Aortic Valve The aortic valve is trileaflet. There is mild aortic valve sclerosis. There is no aortic valve stenosis. There is no aortic valve regurgitation. Pulmonic Valve The pulmonic valve is not well visualized. There is mild pulmonic regurgitation. Mitral Valve There is mild mitral valve regurgitation. Tricuspid Valve There is mild tricuspid valve regurgitation. Pericardium/Pleural There is small anterior pericardial effusion. Inferior Vena Cava Normal inferior vena cava with >50% collapse upon inspiration consistent with normal right atrial pressure, 3 mmHg. Aorta The aortic root size at the sinus of Valsalva is normal. Left Ventricular Outflow Tract Name Value Normal LVOT 2D LVOT Diameter 2.1 cm LVOT Doppler LVOT Peak Gradient 5 mmHg LVOT Mean Gradient 3 mmHg LVOT VTI 23 cm LVOT VTI/AV VTI Ratio 0.8 LVOT Stroke Volume 78 ml LVOT CO 16.4 l/min LVOT CI 7
[2023-02-11 04:00] VITALS: PULSE 56
[2023-02-11] MEDS: LEVOTHYROXINE SODIUM 75 MCG TABLET PO (05:48)
[2023-02-11 06:00] VITALS: BP 110/65; PULSE 59; RESP 18; TEMP 36.4; O2SAT 100
[2023-02-11 06:36] LABS: Hematocrit 24.7 % (42.0-52.0); Hemoglobin 9.1 g/dL (14.0-18.0); Mean Corpuscular HGB Conc 36.8 g/dl (32-36); Mean Corpuscular Hemoglobin 38.6 pg (26-34); Mean Corpuscular Volume 104.7 fl (80-100); Mean Platelet Volume 9.4 fl (7.4-10.4); Platelet Count Result 148 k/mm3 (150-375); Red Blood Count 2.36 M/mm3 (4.6-6.20); Red Cell Distribution Width 13.3 % (11.5-14.5); White Blood Count 3.3 K/mm3 (4.5-10.0)
[2023-02-11 06:46] LABS: Alanine Aminotransferase 16 U/L (6-50); Albumin Level 3.1 g/dL (3.5-5.1); Alkaline Phosphatase 30 U/L (38-126); Anion Gap 8 mmol/L (8-16); Aspartate Amino Transferase 30 U/L (17-59); Bilirubin,Total 2.2 mg/dL (0.2-1.3); Blood Urea Nitrogen 21 mg/dL (9-20); Calcium 8.5 mg/dL (8.4-10.2); Carbon Dioxide 20 mmol/L (22-30); Chloride 111 mmol/L (98-107); Estimated CRCL calculation 37 ml/min; Estimated Glomerular Filt Rate 42; Glucose 89 mg/dL (65-110); Potassium 3.6 mmol/L (3.4-5.0); Sodium 139 mmol/L (137-145)
[2023-02-11 08:00] VITALS: PULSE 64
[2023-02-11] MEDS: levETIRAcetam 500MG/NACL 100ML 500 MG/100 ML BAG 400 MG IVPB (09:20)
--- NOTE | 2023-02-11 11:30 | P.NEURO_ITS ---
Neurology EEG Report General Information Date of Study: 02/11/23 TEST Routine EEG DIAGNOSIS Seizure-like activity CONDITION OF RECORDING Awake, drowsy, asleep EEG NUMBER [id number] CLINICAL HISTORY On day of presentation, patient had an episode of sudden onset of confusion. Concern for possible seizure. Per family, patient typically has an intact long- term memory but has been having difficulty with short-term memory recently.?? EEG DESCRIPTION During the awake state with eyes closed the background consists of 8-9 Hz posterior dominant rhythm which attenuates appropriately with eye opening. The recording is continuous. There is a well developed anterior-posterior gradient. No significant asymmetries of background activities are noted. With drowsiness there is waxing and waning of the dominant rhythm with eventual replacement by a mixture of beta, alpha, and theta activity. As the patient enters stage II sleep, symmetrical spindles and K-complexes are present. Arousal is unremarkable. There are no epileptiform discharges or seizures during this recording. Hyperventilation and photic stimulation were not performed. IMPRESSION This is a normal routine EEG recorded in awake and asleep states. There are no electrographic seizures identified, nor are there any epileptiform discharges. Please note that a normal EEG cannot exclude a seizure disorder. Clinical correlation is recommended.
[2023-02-11 12:00] VITALS: PULSE 59
[2023-02-11 13:05] VITALS: BMI 29.2
--- NOTE | 2023-02-11 13:47 | PM.DS ---
DS: Admitting Diagnosis Discharge Date 02/11/23 Admitting Diagnosis Acute metabolic encephalopathy DS: Discharge Diagnosis Discharge Diagnosis (1) Cognitive impairment: Code(s): R41.89 - Other symptoms and signs involving cognitive functions and awareness Status: Acute Assessment and Plan: The patient's son stated that the patient has his long-term memory intact but his short-term memory has been fading. The patient has been following with [facility] for his pituitary tumor. Neurology has been consulted. It is felt that this is possibly a seizure. Patient started on IV Keppra 500 mg every 12 hours. eeg Did not reveal any seizure activity Echocardiogram pending. MRI revealing unchanged pituitary tumor (2) Pituitary mass: Code(s): E23.6 - Other disorders of pituitary gland Status: Acute Assessment and Plan: The patient had been followed by a physician at [facility]. The patient has a pituitary gland tumor and according to the son the patient has been treated with testosterone and levothyroxine. We will continue with those but is my understanding the patient is not been taking in p.o. fluids very well. So I will change his levothyroxine to IV. The patient may need require transfer to [facility] for further evaluation. (3) Benign essential hypertension: Code(s): I10 - Essential (primary) hypertension Status: Acute Assessment and Plan: Amlodipine and lisinopril Continue. P.r.n. hydralazine has been ordered. DS: Summary Hospital Course Hospital Course: This is a 77-year-old male with a past medical history of pituitary mass that is being followed by a another neurologist. He presented to the ED on 02/09/2023 due to becoming confused at a barbecue earlier that day. He is found to have a blood glucose in the 80s. stable H& H. BUN and creatinine were 24/1.6 which is his baseline. CT head revealed no acute intracranial process and stable pituitary microadenoma. CTA head and neck negative for CVA or large vessel occlusion. MRI no acute intracranial process. Neurology consulted for possible seizure. He was started on Keppra 500 mg b.i.d.. EEG did not show evidence of seizure activity. Patient returned back to baseline and he is feeling great. His labs and vital signs are stable. Discussed with Neurology and they recommended he continue his 500 mg of Keppra b.i.d. until he can follow-up with his neurologist. He is medically clear for discharge at this time. Time Spent with Patient Time attestation: Total time spent providing and/or coordinating discharge services: Exam Narrative: GENERAL: Comfortable, no acute distress HENMT: moist mucous membranes EYES: EOM intact b/l NECK: no lymphadenopathy RESPIRATORY: clear to auscultation CARDIO: RRR GI: soft, nontender, bowel sounds present SKIN: no rashes EXTREMITIES: no edema, redness or tenderness DS: Data Data Completed and Pending Labs on day of discharge: Labs from last 24 hours 02/11/23 02/10/23 05:32 06:09 WBC 3.3 L RBC 2.36 L Hgb 9.1 L Hct 24.7 L MCV 104.7 H MCH 38.6 H MCHC 36.8 H RDW 13.3 Plt Count 148 L MPV 9.4 Sodium 139 Potassium 3.6 Chloride 111 H Carbon Dioxide 20 L Anion Gap 8 BUN 21 H Creatinine 1.60 H Estim Creat Clear Calc 37 Estimated GFR 42 L Glucose 89 Calcium 8.5 Total Bilirubin 2.2 H AST 30 ALT 16 Alkaline Phosphatase 30 L Total Protein 6.0 L Albumin 3.1 L Free T4 1.61 Total T3 1.52 Preliminary micro results at discharge 02/09/23 23:43 Blood Culture - Preliminary Blood 02/09/23 23:43 Blood Culture - Preliminary Blood Discharge Plan Discharge Attending physician on discharge: Bina Donald Consulting providers: Nima,Tram Walter; Aden Armendariz Discharging Clinician: Radha Mooney Patient Disposition: Home Health Service Activity: as tolerated Diet: regular
[2023-02-11 14:00] VITALS: BP 127/75; PULSE 65; RESP 16; TEMP 36.5; O2SAT 100
[2023-02-13 16:53] LABS: Glucose Point of Care 77 mg/dl (65-105)
== END 2023-02-11 15:45 | disposition home health service (06) | DRG 100 ==
LOC: ANHED 15:50 → ANH3MEDSUR 17:41
PROVIDERS: Nurse Practitioner; Admitting Provider Internal Medicine; Emergency Provider Emergency Medicine; PCP Family Medicine; Visit Provider Internal Medicine Critical Care Medicine
DX: R56.9 Unspecified convulsions (principal); G93.41 Metabolic encephalopathy; E23.6 Other disorders of pituitary gland; R41.89 Other symptoms and signs involving cognitive functions and awareness; I12.9 Hypertensive chronic kidney disease with stage 1 through stage 4 chronic kidney disease, or unspecified chronic kidney disease; N18.30 Chronic kidney disease, stage 3 unspecified; E03.9 Hypothyroidism, unspecified; L71.9 Rosacea, unspecified; M10.9 Gout, unspecified; Z85.828 Personal history of other malignant neoplasm of skin
CPT/HCPCS: 36415; 70450; 70496; 70498; 70551; 71045; 80053; 81003; 82948; 83735; 84439; 84443; 84480; 84484; 85025; 85027; 85610; 85730; 87040; 92611; 93005; 93306; 95816; 96375; 97161; 97165; 97530; 97535; 99285; A9270; J1741; J1953; J7030; Q9967

== ENCOUNTER 2023-05-15 11:24 | Outpatient (CLI) | payer MEDICARE, SELFPAY ==
[2023-05-15 13:45] LABS: Basophils Percent Auto 0.6 % (0.2-1.2); Eosinophils Absolute Auto 0.2 K/mm3 (0-0.3); Eosinophils Percent Auto 4.6 % (0-4.4); Immature Granulocyte Absolute 0.03 K/mm3 (0.00-0.031); Immature Granulocyte Percent A 0.6 % (0-0.5); Immature Reticulocyte Fraction 22.1 % (3.0-15.9); Lymphocytes Absolute Auto 1.42 K/mm3 (0.9-3.2); Lymphocytes Percent Auto 29.6 % (18.3-44.2); Mean Corpuscular HGB Conc 34.5 g/dl (32-36); Mean Corpuscular Volume 110.3 fl (80-100); Mean Platelet Volume 9.6 fl (7.4-10.4); Monocytes Absolute Auto 0.5 K/mm3 (0.1-0.6); Monocytes Percent Auto 9.4 % (2.6-8.5); Neutrophils Absolute Auto 2.7 K/mm3 (1.3-6.7); Neutrophils Percent Auto 55.2 % (45.5-73.1); Platelet Count Result 184 k/mm3 (150-375); Red Blood Count 2.63 M/mm3 (4.6-6.20); Red Cell Distribution Width 16.4 % (11.5-14.5); Reticulocyte Hemoglobin Conten 41.3 pg (28.2-35.7); Reticulocyte Percent 3.26 % (0.7-4.3); Reticulocytes Absolute 0.09 M/mm3 (0.02-0.1); White Blood Count 4.8 K/mm3 (4.5-10.0)
[2023-05-15 14:37] LABS: Vitamin B12 < 159.0 pg/mL (239-931)
[2023-05-15 20:38] LABS: Iron 110 ug/dL (49-181)
[2023-05-18 07:28] LABS: Red Blood Cell Folate 448 ng/mL RBC (>280)
== END 2023-05-15 11:25 | disposition home or self-care (01) ==
PROVIDERS: PCP Family Medicine; Visit Provider Family Medicine
DX: D64.9 Anemia, unspecified (principal)
CPT/HCPCS: 36415; 82607; 82728; 82747; 83540; 85025; 85046

== ENCOUNTER 2023-05-28 01:18 | Day surgery (SDC) | payer MEDICARE, SELFPAY ==
[2023-05-16 12:58] VITALS: BMI 27.5
--- NOTE | 2023-05-24 11:01 | SUR.PREOP ---
Patient called regarding upcoming procedure. Reviewed preop instructions, appointment times, and procedure prep.
[2023-05-28] MEDS: LACTATED RINGERS 1,000 ML 150 ML IV CONT (08:39)
--- NOTE | 2023-05-28 09:41 | PM.HPGS ---
History of Present Illness History of Present Illness Consent: Risks, benefits, and alternatives have been discussed and questions answered. Patient agrees to proceed with procedure. Chief complaint: hx of colon polyps Narrative: Ibrahima Martinez is a 77 year old male Presents for colonoscopy. Patient has a history of a large sigmoid colon polyp in 2021. Patient's current weight appetite and bowel movements are normal. Patient denies abdominal pain. He has had no bleeding. Family history noncontributory. Review of Systems Review of Systems: Review of systems noncontributory. [facility] Past Medical History Medical History Basal cell carcinoma CKD (chronic kidney disease) stage 3, GFR 30-59 ml/min Hypertension Hypothyroidism Obesity (BMI 30.0-34.9) Rosacea, acne Surgical History Surgical History H/O colonoscopy History of removal of cyst Family History Family History Mother Acute myocardial infarction, Onset Age: 73 Social History Social History Social History: The patient has 2 sons. He lives with his Debbie who is the durable power finance attorney for healthcare. 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 He is a lifelong nonsmoker. He does not use alcohol marijuana or illicit drugs. Code status full code Smoking status: Never smoker Alcohol intake: never Drinks per week: 1 Alcohol use details: rare occasions Substance use: never Substance use type: does not use Lack of Transportation: No Lack of Food: Never True Current Housing: I Have Housing Concerned About Future Housing: No Difficulty Paying Gas/Electric Bills: No Difficulty Paying for Meds: No Currently Unemployed: No Education: Master's Degree or Higher Difficulty w/ Childcare or Family Care: No Living arrangements: with family Spiritual care concerns: No Meds Home Medications and Allergies Home Medications Medication Instructions Recorded Confirmed Type allopurinol 300 mg tablet 300 mg PO DAILY 02/09/23 05/16/23 History amlodipine 5 mg tablet 2.5 mg PO DAILY 02/09/23 05/16/23 History testosterone 1.62 % (20.25 mg/1.25 40.5 mg topical DAILY 02/09/23 05/16/23 History gram) transdermal gel packet lisinopril 20 mg tablet 20 mg PO DAILY #90 tabs 04/04/23 05/16/23 Rx levothyroxine 75 mcg capsule 88 mcg PO DAILY 05/15/23 05/16/23 History Allergies Allergy/AdvReac Type Severity Reaction Status Date / Time No Known Allergies Allergy Verified 05/28/23 08:24 Exam Narrative: Physical exam reveals patient to be alert. Vital signs stable. HEENT exam is unremarkable. Patient is anicteric. Lungs are clear to auscultation and percussion. Heart is without murmur or extra sounds. Abdomen bowel sounds are present soft nontender with no organomegaly. Digital external rectal exam normal. Assessment and Plan Assessment and plan (1) History of colon polyps: Code(s): Z86.010 - Personal history of colonic polyps Status: Acute Assessment and Plan: Patient has a history of adenomatous colon polyps. Plan for surveillance colonoscopy at this time. Further recommendations may be given after endoscopy.
--- NOTE | 2023-05-28 10:00 | P.PNAN_ITS ---
Anes - Initial Pre Proc Eval Procedure: Operation Date: 05/28/23 09:45 Proposed Procedures p Colonoscopy - Gatito Regalado MD Date/Time: 05/28/23 10:00 Surgeon: Gatito Regalado MD Pre Op Diagnosis: hx of colon polyps Patient Data Age: 77 Gender: M Height: 1.83 m Weight: 91.2 kg Allergies Allergy/AdvReac Type Severity Reaction Status Date / Time No Known Allergies Allergy Verified 05/28/23 08:24 Home Medications Medication Instructions Recorded Confirmed Type allopurinol 300 mg tablet 300 mg PO DAILY 02/09/23 05/16/23 History amlodipine 5 mg tablet 2.5 mg PO DAILY 02/09/23 05/16/23 History testosterone 1.62 % (20.25 mg/1.25 40.5 mg topical DAILY 02/09/23 05/16/23 History gram) transdermal gel packet lisinopril 20 mg tablet 20 mg PO DAILY #90 tabs 04/04/23 05/16/23 Rx levothyroxine 75 mcg capsule 88 mcg PO DAILY 05/15/23 05/16/23 History Patient hx anesthesia problems: none Family hx anesthesia problems: none Results Review: All pre-operative results and documents have been reviewed as part of the pre- operative evaluation. [facility] Past Medical History Medical History Basal cell carcinoma CKD (chronic kidney disease) stage 3, GFR 30-59 ml/min Hypertension Hypothyroidism Obesity (BMI 30.0-34.9) Rosacea, acne Surgical History Surgical History H/O colonoscopy History of removal of cyst Family History Family History Mother Acute myocardial infarction, Onset Age: 73 Social History Social History Social History: The patient has 2 sons. He lives with his Debbie who is the durable power managing attorney for healthcare. 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 He is a lifelong nonsmoker. He does not use alcohol marijuana or illicit drugs. Code status full code Smoking status: Never smoker Alcohol intake: never Drinks per week: 1 Alcohol use details: rare occasions Substance use: never Substance use type: does not use Lack of Transportation: No Lack of Food: Never True Current Housing: I Have Housing Concerned About Future Housing: No Difficulty Paying Gas/Electric Bills: No Difficulty Paying for Meds: No Currently Unemployed: No Education: Master's Degree or Higher Difficulty w/ Childcare or Family Care: No Living arrangements: with family Spiritual care concerns: No Anes - Eval Final PreProcedure Day of Procedure 05/28/23 10:00 Patient weight: normal Heart: regular rate and rhythm Lungs: clear to auscultation Airway: Mallampati scale class II Neurological: alert and oriented Last oral intake: >/= 8 hours ASA classification: III Emergent: no Anesthetic plan: proceed Anesthesia type and monitoring: general GIVS and standard monitoring Results Review: All pre-operative results and documents have been reviewed as part of the pre- operative evaluation. Informed Consent: The patient's anesthetic plan and its attendant risks and benefits were discussed with the patient/family/POA. Questions were solicited and answers provided to the satisfaction of the patient/family/POA.
[2023-05-28] MEDS: SIMETHICONE ORAL SUSPENSION 20 MG/0.3 ML 30 ML BOTTLE 0.6 ML IRRIGATION (10:38)
[2023-05-28 10:46] VITALS: BP 104/66; PULSE 53; RESP 22; O2SAT 100
[2023-05-28 10:56] VITALS: BP 128/90; PULSE 53; RESP 23; O2SAT 100
[2023-05-28 11:06] VITALS: BP 126/88; PULSE 55; RESP 22; O2SAT 100
== END 2023-05-28 11:16 | disposition home or self-care (01) ==
PROVIDERS: PCP Family Medicine; Visit Provider Internal Medicine Gastroenterology
PROC: 0DJD8ZZ Inspection of Lower Intestinal Tract, Via Natural or Artificial Opening Endoscopic (ICD-10-PCS; CPT 45378; principal; 2023-05-28 09:45)
DX: Z12.11 Encounter for screening for malignant neoplasm of colon (principal); K64.8 Other hemorrhoids; Z86.010 Personal history of colon polyps; I12.9 Hypertensive chronic kidney disease with stage 1 through stage 4 chronic kidney disease, or unspecified chronic kidney disease; N18.30 Chronic kidney disease, stage 3 unspecified; E03.9 Hypothyroidism, unspecified
CPT/HCPCS: G0105; J2704; J7120

== ENCOUNTER 2023-08-07 08:51 | Outpatient (CLI) | payer MEDICARE, SELFPAY ==
[2023-08-07 13:12] LABS: Basophils Absolute Auto 0.1 K/mm3 (0.0-0.1); Basophils Percent Auto 1.2 % (0.2-1.2); Eosinophils Absolute Auto 0.5 K/mm3 (0-0.3); Eosinophils Percent Auto 7.1 % (0-4.4); Hemoglobin 12.5 g/dL (14.0-18.0); Immature Granulocyte Absolute 0.02 K/mm3 (0.00-0.031); Immature Granulocyte Percent A 0.3 % (0-0.5); Lymphocytes Absolute Auto 1.79 K/mm3 (0.9-3.2); Mean Corpuscular HGB Conc 32.9 g/dl (32-36); Mean Corpuscular Hemoglobin 31.2 pg (26-34); Mean Corpuscular Volume 94.8 fl (80-100); Mean Platelet Volume 10.2 fl (7.4-10.4); Monocytes Absolute Auto 0.7 K/mm3 (0.1-0.6); Monocytes Percent Auto 9.9 % (2.6-8.5); Neutrophils Absolute Auto 3.6 K/mm3 (1.3-6.7); Neutrophils Percent Auto 54.5 % (45.5-73.1); Platelet Count Result 205 k/mm3 (150-375); Red Blood Count 4.01 M/mm3 (4.6-6.20); Red Cell Distribution Width 12.6 % (11.5-14.5); White Blood Count 6.6 K/mm3 (4.5-10.0)
[2023-08-07 13:32] LABS: Alanine Aminotransferase 10 U/L (6-50); Albumin Level 3.7 g/dL (3.5-5.1); Alkaline Phosphatase 53 U/L (38-126); Anion Gap 6 mmol/L (8-16); Aspartate Amino Transferase 37 U/L (17-59); Bilirubin,Total 1.5 mg/dL (0.2-1.3); Blood Urea Nitrogen 24 mg/dL (9-20); Calcium 9.3 mg/dL (8.4-10.2); Carbon Dioxide 27 mmol/L (22-30); Chloride 107 mmol/L (98-107); Estimated Glomerular Filt Rate 53; Glucose 85 mg/dL (65-110); Potassium 4.3 mmol/L (3.4-5.0); Sodium 140 mmol/L (137-145)
[2023-08-07 13:57] LABS: Thyroid Stimulating Hormone < 0.015 uIU/mL (0.465-4.680)
== END 2023-08-07 08:52 | disposition home or self-care (01) ==
LOC: ANHGOSHLAB 08:56
PROVIDERS: PCP Family Medicine; Visit Provider Family Medicine
DX: D35.2 Benign neoplasm of pituitary gland (principal); D51.0 Vitamin B12 deficiency anemia due to intrinsic factor deficiency; E03.9 Hypothyroidism, unspecified
CPT/HCPCS: 36415; 80053; 82607; 84443; 85025

== ENCOUNTER 2024-01-20 12:36 | Outpatient (CLI) | payer MEDICARE, SELFPAY ==
[2024-01-20 20:03] LABS: Free T4 Free Thyroxine 1.63 ng/mL (0.78-2.19)
== END 2024-01-20 12:37 | disposition home or self-care (01) ==
PROVIDERS: PCP Family Medicine; Visit Provider Internal Medicine Endocrinology, Diabetes & Metabolism
DX: E03.8 Other specified hypothyroidism (principal); D35.2 Benign neoplasm of pituitary gland
CPT/HCPCS: 36415; 84439

== ENCOUNTER 2024-04-28 10:55 | Outpatient (CLI) | payer MEDICARE, SELFPAY ==
[2024-04-28 14:31] LABS: Basophils Absolute Auto 0.1 K/mm3 (0.0-0.1); Basophils Percent Auto 1.2 % (0.2-1.2); Eosinophils Absolute Auto 0.3 K/mm3 (0-0.3); Eosinophils Percent Auto 5.6 % (0-4.4); Hematocrit 37.5 % (42.0-52.0); Hemoglobin 12.7 g/dL (14.0-18.0); Immature Granulocyte Absolute 0.02 K/mm3 (0.00-0.031); Immature Granulocyte Percent A 0.4 % (0-0.5); Lymphocytes Absolute Auto 1.82 K/mm3 (0.9-3.2); Lymphocytes Percent Auto 36.5 % (18.3-44.2); Mean Corpuscular HGB Conc 33.9 g/dl (32-36); Mean Corpuscular Hemoglobin 31.7 pg (26-34); Mean Corpuscular Volume 93.5 fl (80-100); Mean Platelet Volume 9.8 fl (7.4-10.4); Monocytes Absolute Auto 0.5 K/mm3 (0.1-0.6); Monocytes Percent Auto 10.2 % (2.6-8.5); Neutrophils Absolute Auto 2.3 K/mm3 (1.3-6.7); Neutrophils Percent Auto 46.1 % (45.5-73.1); Platelet Count Result 185 k/mm3 (150-375); Red Blood Count 4.01 M/mm3 (4.6-6.20); Red Cell Distribution Width 13.1 % (11.5-14.5)
[2024-04-28 15:23] LABS: Prostate Specific Antigen 2.1 ng/mL (< OR = 4.0)
[2024-04-28 15:41] LABS: Free T4 Free Thyroxine 1.61 ng/mL (0.78-2.19)
[2024-05-02 18:13] LABS: Testosterone Total 252 ng/dL (250-1100)
[2024-05-04 23:09] LABS: Varicella IgG Antibody 4.55 S/CO
[2024-05-05 20:33] LABS: Varicella IgM Antibody 0.37
== END 2024-04-28 10:56 | disposition home or self-care (01) ==
PROVIDERS: Internal Medicine Endocrinology, Diabetes & Metabolism; PCP Family Medicine; Visit Provider Nurse Practitioner Family
DX: E03.8 Other specified hypothyroidism (principal); D35.2 Benign neoplasm of pituitary gland; E29.1 Testicular hypofunction; Z12.5 Encounter for screening for malignant neoplasm of prostate; Z13.29 Encounter for screening for other suspected endocrine disorder; Z13.0 Encounter for screening for diseases of the blood and blood-forming organs and certain disorders involving the immune mechanism; Z13.228 Encounter for screening for other metabolic disorders
CPT/HCPCS: 36415; 84153; 84403; 84439; 85025; 86787

== ENCOUNTER 2024-11-05 09:00 | Outpatient (RCR) | payer MEDICARE, SELFPAY ==
--- NOTE | 2024-10-09 14:39 | OPREHPOC ---
Outpatient Therapy Plan of Care This is a Multidisciplinary Plan of Care that may contain components documented by all disciplines (PT, OT, and ST.) PT Problem 1 PT Problem #1 Knowledge Deficit PT Goal 1 Goal / Goal Update [place] with HEP Target Visit 4 PT Goal 2 Goal / Goal Update Improve Tinetti score by 5+ points to reduce fall risk Target Visit 8 PT Problem 2 PT Problem #2 Impaired Strength PT Goal 1 Goal / Goal Update Improve barb hip flexion to 4+/5 to improve foot clearance with gait pattern Target Visit 8 PT Problem 3 PT Problem #3 Impaired Balance PT Goal 1 Goal / Goal Update Demonstrate ability to maintain balance on uneven surface for 30 seconds Target Visit 8
--- NOTE | 2024-10-09 14:40 | PTOPEVAL1 ---
Assessment and note entered by Geovanny Boykin, PT Evaluation Information Assessment Status Evaluation Diagnosis Ataxia ICD-10 Condition Codes (PT) Difficulty Walking R26.2 Onset 2022 Subjective Information Reports that over the last couple of years he has noticed that he has been having increased weakness and balance issues that have been increasing overtime. Denies any falls. Denies any pain contributing to the problem. He has been doing some exercises at [place] but feels he needs more help. Reports that he has not been sleeping well due to excessive bathroom use. Feels that he has lost a lot of his strength in the past couple of years. He has lost about 40 pounds in the last 2 years. Reports moderate activity in the home. Has not been as active this winter. He used to do a lot of track walking. Reported Pain Level Pain Score 0: Self Report Assessment PT Clinical Summary Patient presents with poor hip and knee mobility with mild contracture of knee flexion at baseline. Shortened stride noted with gait with shuffling and poor terminal stance. Patient will benefit from skilled therapy to improve mechanics, balance , core stability, and gross lower chain mobility to improve stabilization and reduce fall risk. Plan of Care Interventions Gait Training,Manual Therapy,Neuro Re-education, Therapeutic Activities,Therapeutic Exercise PT Services Indicated Yes Treatment Frequency and 2x/week for 8 visits Duration These treatments will address the objective and functional deficits as defined above. The patient will be advanced safely and appropriately in order for the patient to progress towards his/her prior level of function. Additional exercises will be introduced and as well as a comprehensive home exercise program upon discharge, if needed, ?to ensure carryover of functional gains achieved in the clinic. This treatment plan has been reviewed and agreement upon by the patient.
--- NOTE | 2024-11-05 10:12 | OPREHPOC ---
Outpatient Therapy Plan of Care This is a Multidisciplinary Plan of Care that may contain components documented by all disciplines (PT, OT, and ST.) PT Problem 1 PT Problem #1 Knowledge Deficit PT Goal 1 Goal / Goal Update [place] with HEP Target Visit 4 Progress Met PT Goal 2 Goal / Goal Update Improve Tinetti score by 5+ points to reduce fall risk 11/05/24: 1. met Target Visit 8 Progress Met PT Problem 2 PT Problem #2 Impaired Strength PT Goal 1 Goal / Goal Update Improve barb hip flexion to 4+/5 to improve foot clearance with gait pattern 11/05/24: 1. progressing Target Visit 8 PT Problem 3 PT Problem #3 Impaired Balance PT Goal 1 Goal / Goal Update Demonstrate ability to maintain balance on uneven surface for 30 seconds 11/05/24: 1. met Target Visit 8
--- NOTE | 2024-11-05 10:12 | PTOPDC ---
Assessment and note entered by Franc Badillo, PT, DPT Evaluation Information Assessment Status Progress Diagnosis Ataxia ICD-10 Condition Codes (PT) Difficulty Walking R26.2 Onset 2022 Subjective Information Pt states he is feeling good, states he feels some improvement and knows what he needs to be working on. He has been working at the gym to get his L leg stronger. Pt states his family has mentioned how much taller he is standing and walking around. Reported Pain Level Pain Score 0: Self Report Assessment PT Clinical Summary Patient presents to therapy today for his progress report following 8 visits of skilled therapy to treat his poor hip and knee mobility leading to subsequent fall risk. Today he demonstrates improved LE strength, gait pattern, and score on Tinetti. He has met or progressed well towards his therapy goals and no longer requires skilled services. He will be discharged at this time. Plan of Care PT Services Indicated Yes
== END 2024-11-05 11:03 | disposition home or self-care (01) ==
LOC: ANHGOSHPT 09:00
PROVIDERS: PCP Family Medicine; Visit Provider Nurse Practitioner Family
DX: R27.0 Ataxia, unspecified (principal)
CPT/HCPCS: 97110; 97112; 97161; 97530

== ENCOUNTER 2024-11-27 08:21 | Outpatient (CLI) | payer MEDICARE, SELFPAY ==
--- OUTSIDE RECORDS SUMMARY | 2024-11-27 08:24 | XMS_ITS | Referral Summary ---
Author Organization [facility] Address [address] [place] [id number] Care Team Providers Care Ict Quality Assurance Engineer Name Role Phone Alexander Arciniega MD Primary Care Provider [phone] Israel Gallardo MD Unavailable [phone] Encounters Date Type Department Care Team Description 11/24/2024 10:20 AM CDT Office Visit [facility] Endocrinology Metabolism and Lipid [address] [place] [address] 1, [address] [place] [address] Tram Herring MD Pituitary adenoma (HCC) (Primary Dx); Secondary hypothyroidism; Secondary male hypogonadism; Vitamin D deficiency 09/23/2024 4:00 PM CRIMINAL INTELLIGENCE SPECIALIST Telemedicine [facility] Neurosurgery [address] [place] [address] Floor 1, [address] [place] [address] Israel Gallardo MD NPH (normal pressure hydrocephalus) (HCC) (Primary Dx) 09/08/2024 9:13 AM CRIMINAL INTELLIGENCE SPECIALIST - 09/11/2024 11:52 AM CRIMINAL INTELLIGENCE SPECIALIST Hospital Encounter [address] [phone] Israel Gallardo MD NPH (normal pressure hydrocephalus) (HCC) (Primary Dx) Discharge Disposition: Discharge to home or self care 09/08/2024 8:50 AM CRIMINAL INTELLIGENCE SPECIALIST Lab [address] 1st [place] [address] NPH (normal pressure hydrocephalus) (HCC); Other cerebrovascular disease 09/08/2024 Orders Only [facility] Neuro Interventional Radiology [address] [place] [address] Shayna Barger, RN 09/08/2024 8:39 AM CRIMINAL INTELLIGENCE SPECIALIST - 09/08/2024 11:59 PM CRIMINAL INTELLIGENCE SPECIALIST Hospital Encounter [facility] Neuro Interventional Radiology [address] [place] [address] NPH (normal pressure hydrocephalus) (HCC) Discharge Disposition: Discharge to home or self care from Last 3 Months Allergies No known active allergies Medications allopurinoL (ZYLOPRIM) 300 mg tablet Take 1 tablet (300 mg total) by mouth daily 3 Active lisinopriL (PRINIVIL,ZEST RIL) 20 mg tablet Take 1 tablet (20 mg total) by mouth daily 3 Active cyanocobalamin , vitamin B-12, 1,000 mcg/mL kit Inject as directed Active testosterone 20.25 mg/1.25 gram (1.62 %) gel in metered-dose pump Apply 1.5 pump presses per day 75 g 5 4 Active acetaminophen (TYLENOL) 325 mg tabletIndicati ons:Pain Take 2 tablets (650 mg total) by mouth every 4 (four) hours as needed for pain 5 Active levothyroxine (SYNTHROID) 88 mcg tabletIndicati ons:Secondary hypothyroidism ,Pituitary adenoma (HCC) Take 1 tablet by mouth once daily 30 tablet 5 Active levothyroxine (SYNTHROID) 88 mcg tabletIndicati ons:Secondary hypothyroidism ,Pituitary adenoma (HCC) Take 1 tablet by mouth once daily 30 tablet 2 5 025 Discontinued Active Problems Problem Noted Date Diagnosed Date Vitamin D deficiency 11/24/2024 NPH (normal pressure hydrocephalus) 09/08/2024 Macrocytic anemia 05/14/2023 Pituitary adenoma 01/23/2023 Secondary hypothyroidism 01/23/2023 Overview (05/19/2024): TSH LEVEL WILL NOT BE A RELIABLE INDICATOR OF THYROID HORMONE STATUS SINCE PATIENT HAS CENTRAL/SECONDARY HYPOTHYROIDISM. LEVOTHYROXINE SHOULD NOT BE ADJUSTED BASED ON TSH. IT SHOULD BE ADJUSTED BASED ON FT4 ONLY FOLLOW FREE T4 LEVELS ONLY, GOAL HIGH NORMAL. DO NOT CHECK TSH LEVEL Secondary male hypogonadism 01/23/2023 Primary hypertension 01/23/2023 Gout 01/23/2023 Screening PSA (prostate specific antigen) 2022 Immunizations Immunization Administration Dates Next Due Influenza, Quad, Adjuvantated, Intramuscular Social History Tobacco Use Types Packs/Day Years Used Date Smoking Tobacco: Never Smokeless Tobacco: Never Tobacco Cessation:Counseling Given: Not Answered AUDIT-C Answer Date Recorded Q1: How often do you have a drink containing alc ohol? 2-4 times a month 05/14/2023 Q2: How many drinks containi ng alcohol do you have on a typical day when you are drinking? 1 or 2 05/14/2023 Q3: How often do you have si x or more drinks on one occasion? Never 05/14/2023 PHQ-2 Answer Date Recorded PHQ-2 Total Score (If total score is 3 or more points, staff should administer the PHQ-9) 0 09/08/2024 Personal Safety Answer Date Recorded Have you ever been in or are you currently in a harmful physical or emotional relationship or is someone making you feel afraid or unsafe? Denies 09/08/2024 Sex and Gender Information Value Date Recorded Sex Assigned at Not on file Legal Sex Male 2:31 AM CRIMINAL INTELLIGENCE SPECIALIST Gender Identity Not on file Sexual Orientation Not on file Occupation Industry Job Start Date Job End Date Retired Not on file Not on file Not on file Last Filed Vital Signs Vital Sign [place] Time Taken Comments Blood Pressure 122/78 11/24/2024 9:56 AM CDT Pulse 65 11/24/2024 9:56 AM CDT Temperature 36.7 C (98.1 F) 09/11/2024 11:19 AM CRIMINAL INTELLIGENCE SPECIALIST Respiratory Rate 17 11/24/2024 9:56 AM CDT Oxygen Saturation 100% 11/24/2024 9:56 AM CDT Inhaled Oxygen Concentration - - Weight 81.7 kg (180 lb 3.2 oz) 11/24/2024 9:56 A M CDT Height 182.9 cm (6') 11/24/2024 9:56 AM CDT Body Mass Index 24.44 11/24/2024 9:56 AM CDT Plan of Treatment Not on file Procedures Procedure Name Priority Date/Time Associated Diagnosis Comments EGFR Routine 09/10/2024 11:05 PM CRIMINAL INTELLIGENCE SPECIALIST BASIC METABOLIC PANEL Routine 09/10/2024 11:05 PM CRIMINAL INTELLIGENCE SPECIALIST CBC WITHOUT DIFFERENTIAL Routine 09/10/2024 11:05 PM CRIMINAL INTELLIGENCE SPECIALIST EGFR Routine 09/09/2024 11:30 PM CRIMINAL INTELLIGENCE SPECIALIST BASIC METABOLIC PANEL Routine 09/09/2024 11:30 PM CRIMINAL INTELLIGENCE SPECIALIST CBC WITHOUT DIFFERENTIAL Routine 09/09/2024 11:30 PM CRIMINAL INTELLIGENCE SPECIALIST URINALYSIS AND REFLEX TO MICROSCOPIC AND CULTURE STAT 09/09/2024 2:20 PM CRIMINAL INTELLIGENCE SPECIALIST EGFR Routine 09/08/2024 9:32 PM CRIMINAL INTELLIGENCE SPECIALIST BASIC METABOLIC PANEL Routine 09/08/2024 9:32 PM CRIMINAL INTELLIGENCE SPECIALIST CBC WITHOUT DIFFERENTIAL Routine 09/08/2024 9:32 PM CRIMINAL INTELLIGENCE SPECIALIST ALZHEIMER S DISEASE EVALUATION, CSF Routine 09/08/2024 2:08 PM CRIMINAL INTELLIGENCE SPECIALIST IR LUMBAR PUNCTURE, DIAGNOSTIC INCL FLUORO GUIDANCE Schedule Routine, Read Routine (OP Routine) 09/08/2024 2:01 PM CRIMINAL INTELLIGENCE SPECIALIST NPH (normal pressure hydrocephalus) (HCC) XR CHEST 1 VIEW IP Routine 09/08/2024 1:03 PM CRIMINAL INTELLIGENCE SPECIALIST B CHECK SAMPLE STAT 09/08/2024 12:37 PM CRIMINAL INTELLIGENCE SPECIALIST ECG 12-LEAD STAT 09/08/2024 11:23 AM CRIMINAL INTELLIGENCE SPECIALIST POCT GLUCOSE DEVICE Routine 09/08/2024 11:16 AM CRIMINAL INTELLIGENCE SPECIALIST EGFR STAT 09/08/2024 11:06 AM CRIMINAL INTELLIGENCE SPECIALIST TYPE AND SCREEN STAT 09/08/2024 11:06 AM CRIMINAL INTELLIGENCE SPECIALIST PHOSPHORUS STAT 09/08/2024 11:06 AM CRIMINAL INTELLIGENCE SPECIALIST MAGNESIUM STAT 09/08/2024 11:06 AM CRIMINAL INTELLIGENCE SPECIALIST COMPREHENSIVE METABOLIC PANEL STAT 09/08/2024 11:06 AM CRIMINAL INTELLIGENCE SPECIALIST DIFFERENTIAL AUTO Routine 09/08/2024 8:5 0 AM CRIMINAL INTELLIGENCE SPECIALIST NPH (normal pressure hydrocephalus) (HCC) CBC WITH AUTO DIFFERENTIAL Routine 09/08/2024 8:50 AM CRIMINAL INTELLIGENCE SPECIALIST NPH (normal pressure hydrocephalus) (HCC) PROTIME-INR Routine 09/08/2024 8:50 AM CRIMINAL INTELLIGENCE SPECIALIST NPH (normal pressure hydrocephalus) (HCC) Other cerebrovascular disease from Last 3 Months Results * (ABNORMAL) eGFR (09/10/2024 11:05 PM CRIMINAL INTELLIGENCE SPECIALIST) eGFR 46(L) >=60 mL/min/1. 73 m2 Comment: Interpretive Data Reference Interval Normal >/= 90 mL/min/1.73m2 Mildly decreased* 60 - 89 mL/min/1.73m2 Mildly to moderately decreased 45 - 59 mL/min/1.73m2 Moderately to severely decreased 30 - 44 mL/min/1.73m2 Severely decreased 15 - 29 mL/min/1.73m2 Kidney Failure < 15 mL/min/1.73m2 *Relative to young adult level Estimated glomerular filtration rate is determined by the 2020 CKD-EPI equation recommended by the National Kidney Foundation (A Unifying Approach to GFR Estimation: Recommendations of the NKF-ASK Task Force on Reassessing the Inclusion of Race in Diagnosing Kidney Disease, JASN 202). The CKD-EPI equation should not be used for patients with unstable renal function and has not been validated in children and those over 70. Current interpretive data was last reviewed 2021. Blood 09/10/2024 11:0 5 PM CRIMINAL INTELLIGENCE SPECIALIST 09/10/2024 11:36 PM CRIMINAL INTELLIGENCE SPECIALIST Debbie Booker DOCUMENT IMAGING MANAGER LAB BLOOD ORDERABLES Fi nal Result Performing Organization Address [facility]/ZIP Co de Phone Number [facility] Department [place] [address] * (ABNORMAL) CBC without differential (09/10/2024 11:05 PM CRIMINAL INTELLIGENCE SPECIALIST) [facility] WBC 4.5 3.8 - 9.9 K/cumm Hgb 11.7(L) 13.0 - 17.5 g/dL [facility] Hct 32.7(L) 38.9 - 50.3 % [facility] Plt 147(L) 150 - 400 K/cumm [facility] MPV 9.6 9.1 - 12.3 fL [facility] RBC 3.76(L) 4.30 - 5.80 M/cumm [facility] MCV 87.0 81.3 - 96.4 fL [facility] MCH 31.1 27.1 - 33.3 pg [facility] MCHC 35.8(H) 32.3 - 35.7 g/dL [facility] RDW CV 13.1 11.1 - 14.9 % [facility] RDW SD 41.2 35.7 - 48.1 fL [facility] NRBC abs 0.00 0.00 - 0.01 K/cumm [facility] Blood 09/10/2024 11:0 5 PM CRIMINAL INTELLIGENCE SPECIALIST 09/10/2024 11:37 PM CRIMINAL INTELLIGENCE SPECIALIST Debbie Booker DOCUMENT IMAGING MANAGER LAB BLOOD ORDERABLES Fi nal Result [facility] Department [place] [address] * (ABNORMAL) Basic metabolic panel (09/10/2024 11:05 PM CRIMINAL INTELLIGENCE SPECIALIST) Pathologist [facility] [place] Sodium 141 135 - 145 mmol/L Potassium, pl 4.4 3.3 - 4.9 mmol/L [facility] Chloride 109 97 - 110 mmol/L [facility] CO2 25 22 - 32 mmol/L [facility] Anion gap 7 2 - 15 mmol/L [facility] BUN 27(H) 6 - 25 mg/dL [facility] Creatinine 1.50(H) 0.80 - 1.30 mg/dL [facility] Glucose 92 70 - 199 mg/dL [facility] Comment: Interpretive Data Fasting glucose >/= 126 mg/dl is diagnostic for diabetes. Fasting is defined as no caloric intake for at least 8 hours. Fasting glucose between 100 mg/dl to 125 mg/dl is diagnostic of prediabetes. In a patient with classic symptoms of hyperglycemia or hyperglycemic crisis, a random glucose >/= 200 mg/dl is diagnostic for diabetes. In the absence of unequivocal hyperglycemia, results should be confirmed by repeat testing. The classification and Diagnosis of Diabetes Diabetes Care 2021; 46: S19-S40. Current interpretive data was last revised 2022. Calcium 9.0 8.5 - 10.3 mg/dL [facility] Blood 09/10/2024 11:0 5 PM CRIMINAL INTELLIGENCE SPECIALIST 09/10/2024 11:36 PM CRIMINAL INTELLIGENCE SPECIALIST Debbie Booker NP LAB BLOOD ORDERABLES Fi nal Result [facility] [place] [address] * (ABNORMAL) eGFR (09/09/2024 11:30 PM CRIMINAL INTELLIGENCE SPECIALIST) eGFR 48(L) >=60 mL/min/1. 73 m2 Comment: Interpretive Data Reference Interval Normal >/= 90 mL/min/1.73m2 Mildly decreased* 60 - 89 mL/min/1.73m2 Mildly to moderately decreased 45 - 59 mL/min/1.73m2 Moderately to severely decreased 30 - 44 mL/min/1.73m2 Severely decreased 15 - 29 mL/min/1.73m2 Kidney Failure < 15 mL/min/1.73m2 *Relative to young adult level Estimated glomerular filtration rate is determined by the 2020 CKD-EPI equation recommended by the National Kidney Foundation (A Unifying Approach to GFR Estimation: Recommendations of the NKF-ASK Task Force on Reassessing the Inclusion of Race in Diagnosing Kidney Disease, JASN 2020). The CKD-EPI equation should not be used for patients with unstable renal function and has not been validated in children and those over 70. Current interpretive data was last reviewed 2021. Blood 09/09/2024 11:3 0 PM CRIMINAL INTELLIGENCE SPECIALIST 09/10/2024 12:20 AM CRIMINAL INTELLIGENCE SPECIALIST Debbie Booker NP LAB BLOOD ORDERABLES Fi nal Result [facility] Department [place] [address] * (ABNORMAL) CBC without differential (09/09/2024 11:30 PM CRIMINAL INTELLIGENCE SPECIALIST) WBC 4.6 3.8 - 9.9 K/cumm Hgb 11.1(L) 13.0 - 17.5 g/dL [facility] Hct 31.6(L) 38.9 - 50.3 % [facility] Plt 140(L) 150 - 400 K/cumm [facility] MPV 9.2 9.1 - 12.3 fL [facility] RBC 3.57(L) 4.30 - 5.80 M/cumm [facility] MCV 88.5 81.3 - 96.4 fL [facility] MCH 31.1 27.1 - 33.3 pg [facility] MCHC 35.1 32.3 - 35.7 g/dL [facility] RDW CV 13.0 11.1 - 14.9 % [facility] RDW SD 41.9 35.7 - 48.1 fL [facility] NRBC abs 0.00 0.00 - 0.01 K/cumm [facility] Blood 09/09/2024 11:3 0 PM CRIMINAL INTELLIGENCE SPECIALIST 09/10/2024 12:20 AM CRIMINAL INTELLIGENCE SPECIALIST Debbie Booker NP LAB BLOOD ORDERABLES Fi nal Result [facility] [place] [address] * (ABNORMAL) Basic metabolic panel (09/09/2024 11:30 PM CRIMINAL INTELLIGENCE SPECIALIST) [facility] Sodium 142 135 - 145 mmol/L Potassium, pl 4.2 3.3 - 4.9 mmol/L [facility] Chloride 108 97 - 110 mmol/L [facility] CO2 23 22 - 32 mmol/L [facility] Anion gap 11 2 - 15 mmol/L [facility] BUN 26(H) 6 - 25 mg/dL [facility] Creatinine 1.47(H) 0.80 - 1.30 mg/dL [facility] Glucose 104 70 - 199 mg/dL [facility] Comment: Interpretive Data Fasting glucose >/= 126 mg/dl is diagnostic for diabetes. Fasting is defined as no caloric intake for at least 8 hours. Fasting glucose between 100 mg/dl to 125 mg/dl is diagnostic of prediabetes. In a patient with classic symptoms of hyperglycemia or hyperglycemic crisis, a random glucose >/= 200 mg/dl is diagnostic for diabetes. In the absence of unequivocal hyperglycemia, results should be confirmed by repeat testing. The classification and Diagnosis of Diabetes Diabetes Care 2021; 46: S19-S40. Current interpretive data was last revised 2022. Calcium 9.0 8.5 - 10.3 mg/dL [facility] Blood 09/09/2024 11:3 0 PM CRIMINAL INTELLIGENCE SPECIALIST 09/10/2024 12:20 AM CRIMINAL INTELLIGENCE SPECIALIST Debbie Booker NP LAB BLOOD ORDERABLES nal Result [facility] [place] [address] * Urinalysis reflex to microscopic and culture Urine, clean voided (09/09/2024 2:20 PM CRIMINAL INTELLIGENCE SPECIALIST) [facility] Color, ur Straw Yellow Clarity, ur Clear Clear [facility] Specific gravity, ur 1.020 1.003 - 1.030 [facility] pH, urine 6.0 [facility] Comment: Interpretive Data U rine pH is affected by diet, medications, systemic acid-base disturbances, and renal tubular function. pH may affect urinary stone formation. For example, urine pH below 6.0 may help reduce the tendency for calcium phosphate stones and pH greater than 6.0 may reduce the tendency for uric acid stone formation. Source: [facility] Laboratories Current Interpretive Data was last revised on 2017 Protein, ur ql Negative Negative [facility] Glucose, ur ql Negative Negative [facility] Ketones, ur Negative Negative [facility] Bilirubin, ur Negative Negative [facility] Blood, ur Negative Negative [facility] Urobilinogen, ur <2.0 <2.0 mg/dL [facility] Nitrite, ur Negative Negative [facility] Leukocyte esterase, ur Negative Negative [facility] UA reflex comment Reflex conditions for microscopic UA and culture not met. [facility] Urine, clean voided 09/09/2024 2:20 PM CRIMINAL INTELLIGENCE SPECIALIST 09/09/2024 3:26 PM CRIMINAL INTELLIGENCE SPECIALIST Debbie Booker NP LAB MICROBIOLOGY - [facility] ORDERABLES Final Result [facility] [place] [address] * (ABNORMAL) eGFR (09/08/2024 9:32 PM CRIMINAL INTELLIGENCE SPECIALIST) eGFR 49(L) >=60 mL/min/1. 73 m2 Comment: Interpretive Data Reference Interval Normal >/= 90 mL/min/1.73m2 Mildly decreased* 60 - 89 mL/min/1.73m2 Mildly to moderately decreased 45 - 59 mL/min/1.73m2 Moderately to severely decreased 30 - 44 mL/min/1.73m2 Severely decreased 15 - 29 mL/min/1.73m2 Kidney Failure < 15 mL/min/1.73m2 *Relative to young adult level Estimated glomerular filtration rate is determined by the 2020 CKD-EPI equation recommended by the National Kidney Foundation (A Unifying Approach to GFR Estimation: Recommendations of the NKF-ASK Task Force on Reassessing the Inclusion of Race in Diagnosing Kidney Disease, JASN 2020). The CKD-EPI equation should not be used for patients with unstable renal function and has not been validated in children and those over 70. Current interpretive data was last reviewed 2021. Blood 09/08/2024 9:32 PM CRIMINAL INTELLIGENCE SPECIALIST 09/08/2024 10:29 PM CRIMINAL INTELLIGENCE SPECIALIST Debbie Booker NP LAB BLOOD ORDERABLES Fi nal Result [facility] [place] [employer] [place] [address] * (ABNORMAL) CBC without differential (09/08/2024 9:32 PM CRIMINAL INTELLIGENCE SPECIALIST) [facility] WBC 5.2 3.8 - 9.9 K/cumm Hgb 11.1(L) 13.0 - 17.5 g/dL [facility] Hct 31.3(L) 38.9 - 50.3 % [facility] Plt 159 150 - 400 K/cumm [facility] MPV 10.0 9.1 - 12.3 fL [facility] RBC 3.56(L) 4.30 - 5.80 M/cumm [facility] MCV 87.9 81.3 - 96.4 fL [facility] MCH 31.2 27.1 - 33.3 pg [facility] MCHC 35.5 32.3 - 35.7 g/dL [facility] RDW CV 13.2 11.1 - 14.9 % [facility] RDW SD 41.4 35.7 - 48.1 fL [facility] NRBC abs 0.00 0.00 - 0.01 K/cumm [facility] Blood 09/08/2024 9:32 PM CRIMINAL INTELLIGENCE SPECIALIST 09/08/2024 10:29 PM CRIMINAL INTELLIGENCE SPECIALIST Debbie Booker DOCUMENT IMAGING MANAGER LAB BLOOD ORDERABLES Fi nal Result Performing Organization Address City/[facility]/ZIP Co de Phone Number [facility] Department [place] [address] * (ABNORMAL) Basic metabolic panel (09/08/2024 9:32 PM CRIMINAL INTELLIGENCE SPECIALIST) Pathologist [facility] [place] Sodium 144 135 - 145 mmol/L Potassium, pl 3.8 3.3 - 4.9 mmol/L [facility] Chloride 111(H) 97 - 110 mmol/L [facility] CO2 23 22 - 32 mmol/L [facility] Anion gap 10 2 - 15 mmol/L [facility] BUN 28(H) 6 - 25 mg/dL [facility] Creatinine 1.44(H) 0.80 - 1.30 mg/dL [facility] Glucose 96 70 - 199 mg/dL [facility] Comment: Interpretive Data Fasting glucose >/= 126 mg/dl is diagnostic for diabetes. Fasting is defined as no caloric intake for at least 8 hours. Fasting glucose between 100 mg/dl to 125 mg/dl is diagnostic of prediabetes. In a patient with classic symptoms of hyperglycemia or hyperglycemic crisis, a random glucose >/= 200 mg/dl is diagnostic for diabetes. In the absence of unequivocal hyperglycemia, results should be confirmed by repeat testing. The classification and Diagnosis of Diabetes Diabetes Care 202; 46: S19-S40. Current interpretive data was last revised 2022. Calcium 8.8 8.5 - 10.3 mg/dL [facility] Blood 09/08/2024 9:32 PM CRIMINAL INTELLIGENCE SPECIALIST 09/08/2024 10:29 PM CRIMINAL INTELLIGENCE SPECIALIST Debbie Booker NP LAB BLOOD ORDERABLES nal Result [facility] Department [place] [address] * Alzheimer???s disease evaluation, CSF (09/08/2024 2:08 PM CRIMINAL INTELLIGENCE SPECIALIST) Pathologist [facility] [place] AD Interpretation Negative Negative Comment: Interpretive Data A cerebrospinal fluid P-Qkk377 to Abeta42 ratio > 0.028 has been shown in clinical studies to have a positive agreement of 90.9% and a negative agreement of 89.2% with amyloid PET ([place] Food and Drug Administration). An Abeta42 concentration > 2,500 pg/mL, even in the context of P-Brs441 to Abeta42 ratio > 0.028, is not consistent with the presence of amyloid pathology. This test is not intended as a standalone test to diagnose Alzheimer s disease and the results must be integrated into a comprehensive clinical evaluation. Failure to adhere to collection instructions in the Lab Test Catalog may yield falsely increased p-Mya908 / Abeta42 ratios. US Food and Drug Administration. FDA Application for CSF Elecsys test. [cited 2022; Available from: https://www.accessdata.fda.gov/cdrh_docs/reviews/R388721.pdf Alzheimer's & dementia : the journal of the Alzheimer's Association 2018; 14(11): 1470-81. Sebastian HENLEY Jr., Cheng PATEL, Chemo K, Satish PHILIP, Cecille Jennings, Randy LAUGHLIN, et al. EDWARD-AA Anuapm marlee NR, Fannie B, Diana Y, Ganga PICKENS, Ross Y, Ghassan K, et al. CSF tau phosphorylation occupancies at T217 and T205 represent improved biomarkers of amyloid and tau pathology in Alzheimer s disease. Nature Aging 2022. Cognitively healthy elderly. [cited October 22, 2023]; Available from: https://[email or web address]_[email or web address]/ Celena Alcocer, Altaf J, Judy E, Isaac H, Jeri BellQ, Gayatri T, et al. CSF biomarkers of Alzheimer's disease concord with amyloid-beta PET and predict clinical progression: A study of fully automated immunoassays in BioFINDER and ADNI cohorts. Research Framework: Toward a biological definition of Alzheimer's disease. Alzheimer's & dementia : the journal of the Alzheimer's Association 2018; 14(4): 535-62. Annabelle BECK, Michael NGUYEN, Ganga PICKENS, Zarina C, Jovanny R, Jesus M, et al. Cerebrospinal fluid biomarkers measured by Elecsys assays compared to amyloid imaging. Alzheimer's & dementia : the journal of the Alzheimer's Association 2018; 14(11): 1460-9. Current Interpretive Data was last revised on 2023. p-Tau/Abeta42 0.0147 <=0.0280 Ratio JOSE STORM Comment: Interpretive Data A cerebrospinal fluid P-Pzy116 to Abeta42 ratio > 0.028 has been shown in clinical studies to have a positive agreement of 90.9% and a negative agreement of 89.2% with amyloid PET ([place] Food and Drug Administration). An Abeta42 concentration > 2,500 pg/mL, even in the context of P-Wud225 to Abeta42 ratio > 0.028, is not consistent with the presence of amyloid pathology. This test is not intended as a standalone test to diagnose Alzheimer s disease and the results must be integrated into a comprehensive clinical evaluation. Failure to adhere to collection instructions in the Lab Test Catalog may yield falsely increased p-Vuy990 / Abeta42 ratios. US Food and Drug Administration. FDA Application for CSF Elecsys test. [cited 2022; Available from: https://www.accessdata.fda.gov/cdrh_docs/reviews/D183012.pdf Alzheimer's & dementia : the journal of the Alzheimer's Association 2018; 14(11): 1470-81. Sebastian HENLEY Jr., Cheng DA, Chemo K, Satish PHILIP, Cecille B, Randy LAUGHLIN, et al. EDWARD-AA Anupam marlee NR, Fannie B, Diana Y, Ganga PICKENS, Ross Y, Ghassan K, et al. CSF tau phosphorylation occupancies at T217 and T205 represent improved biomarkers of amyloid and tau pathology in Alzheimer s disease. Nature Aging 2022. Cognitively healthy elderly. [cited October 22, 2023]; Available from: https://biofinder.se/biofinder_cohorts/[email or web address]-hoqteds-[email or web address]/ Celena Alcocer, Altaf Bell, Judy E, Isaac H, Jeri BellQ, Gayatri T, et al. CSF biomarkers of Alzheimer's disease concord with amyloid-beta PET and predict clinical progression: A study of fully automated immunoassays in BioFINDER and ADNI cohorts. Research Framework: Toward a biological definition of Alzheimer's disease. Alzheimer's & dementia : the journal of the Alzheimer's Association 2018; 14(4): 535-62. Annabelle BECK, Michael NGUYEN, Ganga PICKENS, Zarina C, Jovanny Islas, Jesus M, et al. Cerebrospinal fluid biomarkers measured by Elecsys assays compared to amyloid imaging. Alzheimer's & dementia : the journal of the Alzheimer's Association 2018; 14(11): 1460-9. Current Interpretive Data was last revised on 2023. Abeta42 1,624 >=514 pg/mL JOSE STORM Comment: Interpretive Data The cerebrospinal fluid Abeta42 concentration alone should not be used to assess for the presence of amyloid pathology, as the P-Jmi332 to Abeta42 ratio is significantly more accurate in classifying individuals with and without amyloid pathology (Celena et al., 2018; Annabelle et al., 2018). A low Abeta42 concentration in the context of normal P-Duw619 and total tau may be consistent with Alzheimer-related pathological change (Sebastian et al., 2018). An Abeta42 concentration > 2,500 pg/mL, even in the context of P-Rdi399 to Abeta42 ratio > 0.023, is not consistent with the presence of amyloid pathology. This test is not intended as a standalone test to diagnose Alzheimer s disease and the results must be integrated into a comprehensive clinical evaluation. The reference interval was determined from a cognitively normal, reference population . The testing method is an electrochemiluminescence assay manufactured by [employer]. Values obtained with different assay methods or kits may be different and cannot be used interchangeably. US Food and Drug Administration. FDA Application for CSF Elecsys test. [cited 2022; Available from: https://www.accessdata.fda.gov/cdrh_docs/reviews/R393803.pdf Alzheimer's & dementia : the journal of the Alzheimer's Association 2018; 14(11): 1470-81. Sebastian HENLEY Jr., Cheng DA, Chemo K, Satish PHILIP, Cecille B, Randy LAUGHLIN, et al. EDWARD-AA Anupam marlee NR, Fannie B, Diana Y, Ganga BA, Ross Y, Ghassan K, et al. CSF tau phosphorylation occupancies at T217 and T205 represent improved biomarkers of amyloid and tau pathology in Alzheimer s disease. Nature Aging 2022. Cognitively healthy elderly. [cited October 22, 2023]; Available from: [email or web address]/ Celena Alcocer, Altaf Bell, Judy Zamora, Isaac Jones, Jeri BRADLEY, Gayatri T, et al. CSF biomarkers of Alzheimer's disease concord with amyloid-beta PET and predict clinical progression: A study of fully automated immunoassays in BioFINDER and ADNI cohorts. Research Framework: Toward a biological definition of Alzheimer's disease. Alzheimer's & dementia : the journal of the Alzheimer's Association 2018; 14(4): 535-62. Annabelle BECK, Michael NGUYEN, Ganga PICKENS, Zarina Dimas, Jovanny Islas, Jesus M, et al. Cerebrospinal fluid biomarkers measured by Elecsys assays compared to amyloid imaging. Alzheimer's & dementia : the journal of the Alzheimer's Association 2018; 14(11): 1460-9. Current Interpretive Data was last revised on 2023. Phospho-Tau(181P) 23.8 <=40.9 pg/mL JOSE STORM Comment: Interpretive Data The cerebrospinal fluid P-Sux531 concentration alone should not be used to assess for the presence of neurofibrillary tangle pathology, as studies have found that P- Sna040 is more strongly associated with amyloid pathology than neurofibrillary tangle pathology (Anupam whalen et al., 2022). A low Abeta42 concentration in the context of normal P- Gpb901 and total tau may be consistent with Alzheimer-related pathological change (Sebastian et al., 2018). This test is not intended as a standalone test to diagnose Alzheimer s disease and the results must be integrated into a comprehensive clinical evaluation. The reference interval was determined from a cognitively normal, reference population . The testing method is an electrochemiluminescence assay manufactured by [employer]. Values obtained with different assay methods or kits may be different and cannot be used interchangeably. US Food and Drug Administration. FDA Application for CSF Elecsys test. [cited 2022; Available from: https://www.accessdata.fda.gov/cdrh_docs/reviews/P266702.pdf Alzheimer's & dementia : the journal of the Alzheimer's Association 2018; 14(11): 1470-81. Sebastian HENLEY Jr., Cheng PATEL, Chemo Larkin, Satish PHILIP, Cecille B, Randy LAUGHLIN, et al. EDWARD-AA Anupam whalen NR, Fannie B, Diana Y, Ganga PICKENS, Ross Y, Ghassan K, et al. CSF tau phosphorylation occupancies at T217 and T205 represent improved biomarkers of amyloid and tau pathology in Alzheimer s disease. Nature Aging 2022. Cognitively healthy elderly. [cited October 22, 2023]; Available from: [email or web address]/ Yuriydawna O, Altaf J, Judy E, Isaac H, Jeri BellQ, Gayatri T, et al. CSF biomarkers of Alzheimer's disease concord with amyloid-beta PET and predict clinical progression: A study of fully automated immunoassays in BioFINDER and ADNI cohorts. Research Framework: Toward a biological definition of Alzheimer's disease. Alzheimer's & dementia : the journal of the Alzheimer's Association 2018; 14(4): 535-62. Annabelle BECK, Michael NGUYEN, Ganga PICKENS, Zarina C, Jovanny R, Jesus M, et al. Cerebrospinal fluid biomarkers measured by Elecsys assays compared to amyloid imaging. Alzheimer's & dementia : the journal of the Alzheimer's Association 2018; 14(11): 1460-9. Current Interpretive Data was last revised on 2023. Total-TAU 184 <=431 pg/mL JOSE [facility] Comment: Interpretive data The cerebrospinal fluid total tau concentration alone should not be used to assess for the presence of neurofibrillary tangle or neurodegenerative pathology. A low Abeta42 concentration in the context of normal P-Knt149 and total tau may be consistent with Alzheimer-related pathological change (Sebastian et al., 2018). This test is not intended as a standalone test to diagnose Alzheimer s disease and the results must be integrated into a comprehensive clinical evaluation. The reference interval was determined from a cognitively normal, reference population . The testing method is an electrochemiluminescence assay manufactured by [employer]. Values obtained with different assay methods or kits may be different and cannot be used interchangeably. US Food and Drug Administration. FDA Application for CSF Elecsys test. [cited 2022; Available from: https://www.accessdata.fda.gov/cdrh_docs/reviews/P817974.pdf Alzheimer's & dementia : the journal of the Alzheimer's Association 2018; 14(11): 1470-81. Sebastian HENLEY Jr., Cheng PATEL, Chemo Larkin, Satish PHILIP, Cecille B, Randy SB, et al. EDWARD-AA Anupam marlee NR, Fannie B, Diana Y, Ganga PICKENS, Ross Y, Ghassan K, et al. CSF tau phosphorylation occupancies at T217 and T205 represent improved biomarkers of amyloid and tau pathology in Alzheimer s disease. Nature Aging 2022. Cognitively healthy elderly. [cited October 22, 2023]; Available from: [email or web address]/ Celena O, Altaf J, Judy E, Isaac H, Jeri BellQ, Gayatri T, et al. CSF biomarkers of Alzheimer's disease concord with amyloid-beta PET and predict clinical progression: A study of fully automated immunoassays in BioFINDER and ADNI cohorts. Research Framework: Toward a biological definition of Alzheimer's disease. Alzheimer's & dementia : the journal of the Alzheimer's Association 2018; 14(4): 535-62. Annabelle BECK, Michael NGUYEN, Ganga PICKENS, Zarina C, Jovanny R, Jesus M, et al. Cerebrospinal fluid biomarkers measured by Elecsys assays compared to amyloid imaging. Alzheimer's & dementia : the journal of the Alzheimer's Association 2018; 14(11): 1460-9. Current Interpretive Data was last revised on 2023. CSF 09/08/2024 2:08 PM CRIMINAL INTELLIGENCE SPECIALIST 09/08/2024 3:43 PM CRIMINAL INTELLIGENCE SPECIALIST us Israel Gallardo MD LAB GENETIC TESTING Final Result JOSE PEREZ [facility] Department [place] [address] * IR Lumbar Puncture, Diagnostic incl Fluoro Guidance (09/08/2024 2:01 PM CRIMINAL INTELLIGENCE SPECIALIST) Anatomical Region Laterality Modality Spine N/A Radio Fluoroscop y 09/08/2024 2:06 PM CRIMINAL INTELLIGENCE SPECIALIST Impressions 09/08/2024 2:31 PM CRIMINAL INTELLIGENCE SPECIALIST 1. Successful diagnostic lumbar puncture under fluoroscopic guidance for lumbar drain access. 2. The drain was placed by neurosurgery resident Dr. Carter (please see attached note). Dictated by: Bao Ragsdale D.O. The radiology attending physician has personally reviewed this study, and had reviewed and/or edited this written report and agrees with it. Electronically signed by: Nickolas Wolff MD, PhD Narrative 09/08/2024 2:31 PM CRIMINAL INTELLIGENCE SPECIALIST EXAMINATION: Diagnostic fluoroscopically guided lumbar puncture HISTORY: 79-year-old male presents for lumbar drain axis. TECHNIQUE: The risks and benefits of the lumbar puncture including, but not limited to infection, bleeding, spinal headache, cerebrospinal fluid (CSF) leak requiring blood patch procedure, and irritation or damage to nerves causing pain or permanent injury were discussed with the patient. The patient was given the opportunity to ask questions. The patient acknowledged understanding, gave verbal and written consent, and wished to proceed. A time-out was performed prior to the procedure. Attending physician: Dr. Nickolas Wolff MD, PhD was present for the entire procedure. Initial unsuccessful attempt at L5-S1 due to lack of CSF flow. The L3-L4 level was localized with fluoroscopy. The ribs were counted and this level confirmed. The skin overlying this level was sterilely prepped, draped, and infiltrated with 1% lidocaine for local anesthesia. Under intermittent fluoroscopic guidance, a 14 gauge 3.5 inch Quincke spinal needle was inserted into the thecal sac at this level. Clear CSF was identified. Neurosurgery resident Dr. Carter placed lumbar drain (please see separate note). The patient was then transferred to the nursing area for further observation and 1 hour of bedrest. OPENING PRESSURE: Not performed. Procedure Note Nickolas Wolff MD PhD - 09/08/2024 EXAMINATION: Diagnostic fluoroscopically guided lumbar puncture HISTORY: 79-year-old male presents for lumbar drain axis. TECHNIQUE: The risks and benefits of the lumbar puncture including, but not limited to infection, bleeding, spinal headache, cerebrospinal fluid (CSF) leak requiring blood patch procedure, and irritation or damage to nerves causing pain or permanent injury were discussed with the patient. The patient was given the opportunity to ask questions. The patient acknowledged understanding, gave verbal and written consent, and wished to proceed. A time-out was performed prior to the procedure. Attending physician: Dr. Nickolas Wolff MD, PhD was present for the entire procedure. Initial unsuccessful attempt at L5-S1 due to lack of CSF flow. The L3-L4 level was localized with fluoroscopy. The ribs were counted and this level confirmed. The skin overlying this level was sterilely prepped, draped, and infiltrated with 1% lidocaine for local anesthesia. Under intermittent fluoroscopic guidance, a 14 gauge 3.5 inch Quincke spinal needle was inserted into the thecal sac at this level. Clear CSF was identified. Neurosurgery resident Dr. Carter placed lumbar drain (please see separate note). The patient was then transferred to the nursing area for further observation and 1 hour of bedrest. OPENING PRESSURE: Not performed. IMPRESSION: 1. Successful diagnostic lumbar puncture under fluoroscopic guidance for lumbar drain access. 2. The drain was placed by neurosurgery resident Dr. Carter (please see attached note). Dictated by: Bao Ragsdale D.O. The radiology attending physician has personally reviewed this study, and had reviewed and/or edited this written report and agrees with it. Electronically signed by: Nickolas Wolff MD, PhD Israel Gallardo MD IMG FLUOROSCOPY PROCEDURE S Final Result * XR chest 1 view (Portable) (09/08/2024 1:03 PM CRIMINAL INTELLIGENCE SPECIALIST) Anatomical Region Laterality Modality Body, Chest N/A Computed Radiogr aphy 09/08/2024 2:27 PM CRIMINAL INTELLIGENCE SPECIALIST Impressions 09/08/2024 2:27 PM CRIMINAL INTELLIGENCE SPECIALIST There are no prior chest radiographs available for comparison. Heart size within normal limits. Tortuous thoracic aorta seen. The lungs are clear without focal consolidation or pulmonary edema. No pneumothorax or pleural effusion seen. Electronically signed by: Richy Traore M.D. Narrative 09/08/2024 2:27 PM CRIMINAL INTELLIGENCE SPECIALIST EXAMINATION: 1 view chest radiograph Procedure Note Richy Traore MD - 09/08/2024 EXAMINATION: 1 view chest radiograph IMPRESSION: There are no prior chest radiographs available for comparison. Heart size within normal limits. Tortuous thoracic aorta seen. The lungs are clear without focal consolidation or pulmonary edema. No pneumothorax or pleural effusion seen. Electronically signed by: Richy Traore M.D. Debbie Booker DOCUMENT IMAGING MANAGER IMG XR PROCEDURES Final Result * Check Sample (09/08/2024 12:37 PM CRIMINAL INTELLIGENCE SPECIALIST) Pathologist [facility] [place] ABO Rh A Positive [facility] OTHER 09/08/2024 12:3 7 PM CRIMINAL INTELLIGENCE SPECIALIST 09/08/2024 12:56 PM CRIMINAL INTELLIGENCE SPECIALIST Israel Gallardo MD LAB BLOOD ORDERABLES Daniela l Result [facility] Department [place] [address] [facility] * ECG 12 lead (09/08/2024 11:23 AM CRIMINAL INTELLIGENCE SPECIALIST) Pathologist [facility] [place] Ventricular Rate EKG/Min 55 BPM [facility] Atrial Rate 55 BPM [facility] AK-Interval (MSEC) 208 ms [facility] QRS-Interval (MSEC) 106 ms [facility] QT-Interval (MSEC) 462 ms [facility] QTc 441 ms [facility] P [place] 40 degrees [facility] R [place] -43 degrees [facility] T [place] 58 degrees [facility] Diagnosis Sinus bradycardia Early R wave progression Left axis deviation Nonspecific T wave abnormality Abnormal ECG When compared with ECG of 12-SEP-2001 12:24, QRS axis Shifted left Nonspecific T wave abnormality now evident in Anterior leads Confirmed by KYRA CESAR M.D ([id number]) on 09/09/2024 11:14:05 AM [facility] 09/08/2024 11:2 3 AM CRIMINAL INTELLIGENCE SPECIALIST 09/09/2024 11:14 AM CRIMINAL INTELLIGENCE SPECIALIST Debbie Booker NP ECG ORDERABLES Final R esult [facility] * POCT glucose (09/08/2024 11:16 AM CRIMINAL INTELLIGENCE SPECIALIST) Pathologist [facility] [place] Glucose, POC 87 70 - 199 mg/dL Blood 09/08/2024 11:1 6 AM CRIMINAL INTELLIGENCE SPECIALIST 09/08/2024 11:16 AM CRIMINAL INTELLIGENCE SPECIALIST us Israel Gallardo MD LAB POCT ORDERABLES - DEV ICE Final Result Performing Organization Address [facility]/ZIP Co de Phone Number [facility] [place] [address] * (ABNORMAL) eGFR (09/08/2024 11:06 AM CRIMINAL INTELLIGENCE SPECIALIST) eGFR 43(L) >=60 mL/min/1. 73 m2 Comment: Interpretive Data Reference Interval Normal >/= 90 mL/min/1.73m2 Mildly decreased* 60 - 89 mL/min/1.73m2 Mildly to moderately decreased 45 - 59 mL/min/1.73m2 Moderately to severely decreased 30 - 44 mL/min/1.73m2 Severely decreased 15 - 29 mL/min/1.73m2 Kidney Failure < 15 mL/min/1.73m2 *Relative to young adult level Estimated glomerular filtration rate is determined by the 2020 CKD-EPI equation recommended by the National Kidney Foundation (A Unifying Approach to GFR Estimation: Recommendations of the NKF-ASK Task Force on Reassessing the Inclusion of Race in Diagnosing Kidney Disease, JASN 2020). The CKD-EPI equation should not be used for patients with unstable renal function and has not been validated in children and those over 70. Current interpretive data was last reviewed 2021. Blood 09/08/2024 11:0 6 AM CRIMINAL INTELLIGENCE SPECIALIST 09/08/2024 11:13 AM CRIMINAL INTELLIGENCE SPECIALIST us Debbie Booker NP LAB BLOOD ORDERABLES Fi nal Result Performing Organization Address City/[facility]/ZIP Co de Phone Number [facility] [place] [employer] [place] [address] * Type and screen (09/08/2024 11:06 AM CRIMINAL INTELLIGENCE SPECIALIST) Leonel, indirect Negative ABO Rh A Positive [facility] Blood 09/08/2024 11:0 6 AM CRIMINAL INTELLIGENCE SPECIALIST 09/08/2024 11:18 AM CRIMINAL INTELLIGENCE SPECIALIST Narrative [facility] - 09/08/2024 12:15 PM CRIMINAL INTELLIGENCE SPECIALIST Has the patient had Daratumumab or Isatuximab in the past 6 months?->Unknown Debbie Booker DOCUMENT IMAGING MANAGER LAB BLOOD BANK TEST ORD ERABLES Final Result [facility] [place] [address] * Phosphorus (09/08/2024 11:06 AM CRIMINAL INTELLIGENCE SPECIALIST) Pathologist [facility] [place] Phosphorus, pl 3.3 2.3 - 4.5 mg/dL Blood 09/08/2024 11:0 6 AM CRIMINAL INTELLIGENCE SPECIALIST 09/08/2024 11:13 AM CRIMINAL INTELLIGENCE SPECIALIST Debbie Booker LAB BLOOD ORDERABLES Fi nal Result Performing Organization Address [facility] Co de Phone Number [facility] [place] [address] * Magnesium (09/08/2024 11:06 AM CRIMINAL INTELLIGENCE SPECIALIST) Pathologist [facility] [place] Magnesium 2.0 1.4 - 2.5 mg/dL Blood 09/08/2024 11:0 6 AM CRIMINAL INTELLIGENCE SPECIALIST 09/08/2024 11:13 AM CRIMINAL INTELLIGENCE SPECIALIST Debbie Booker LAB BLOOD ORDERABLES Fi nal Result Performing Organization Address City/[facility]/ZIP Co de Phone Number [facility] [place] [employer] [place] [address] * (ABNORMAL) Comprehensive metabolic panel (09/08/2024 11:06 AM CRIMINAL INTELLIGENCE SPECIALIST) Sodium 143 135 - 145 mmol/L Potassium, pl 4.6 3.3 - 4.9 mmol/L [facility] Chloride 111(H) 97 - 110 mmol/L [facility] CO2 25 22 - 32 mmol/L [facility] Anion gap 7 2 - 15 mmol/L [facility] BUN 29(H) 6 - 25 mg/dL [facility] Creatinine 1.59(H) 0.80 - 1.30 mg/dL [facility] Glucose 88 70 - 199 mg/dL [facility] Comment: Interpretive Data Fasting glucose >/= 126 mg/dl is diagnostic for diabetes. Fasting is defined as no caloric intake for at least 8 hours. Fasting glucose between 100 mg/dl to 125 mg/dl is diagnostic of prediabetes. In a patient with classic symptoms of hyperglycemia or hyperglycemic crisis, a random glucose >/= 200 mg/dl is diagnostic for diabetes. In the absence of unequivocal hyperglycemia, results should be confirmed by repeat testing. The classification and Diagnosis of Diabetes Diabetes Care 202; 46: S19-S40. Current interpretive data was last revised 2022. Calcium 9.3 8.5 - 10.3 mg/dL [facility] Bilirubin, total 1.3(H) 0.1 - 1.2 mg/dL [facility] Protein, pl 6.2(L) 6.5 - 8.5 g/dL [facility] Albumin 4.0 3.5 - 5.0 g/dL [facility] Alk phos 51 40 - 130 Units/L [facility] ALT 7 7 - 55 Units/L [facility] AST 14 10 - 50 Units/L [facility] Blood 09/08/2024 11:0 6 AM CRIMINAL INTELLIGENCE SPECIALIST 09/08/2024 11:13 AM CRIMINAL INTELLIGENCE SPECIALIST us Debbie Booker NP LAB BLOOD ORDERABLES Fi nal Result [facility] Department [place] [address] * Differential, auto (09/08/2024 8:50 AM CRIMINAL INTELLIGENCE SPECIALIST) Neutrophil abs 3.5 1.5 - 6.5 K/cumm Imm gran abs 0.0 0.0 - 0.1 K/cumm [facility] Lymphocyte abs 2.0 0.8 - 3.3 K/cumm [facility] Monocyte abs 0.5 0.2 - 0.8 K/cumm [facility] Eosinophil abs 0.3 0.0 - 0.5 K/cumm [facility] Basophil abs 0.1 0.0 - 0.1 K/cumm [facility] Neutrophil pct 54.5 % [facility] Comment: Interpretive Data Percent cell count reference ranges are not reported, since discordance with absolute values may lead to misinterpretation of CBC data. Current Interpretive Data was last revised on 2017. Imm gran pct 0.5 % [facility] Comment: Interpretive Data Percent cell count reference ranges are not reported, since discordance with absolute values may lead to misinterpretation of CBC data. Current Interpretive Data was last revised on 2017. Lymphocyte pct 31.4 % [facility] Comment: Interpretive Data Percent cell count reference ranges are not reported, since discordance with absolute values may lead to misinterpretation of CBC data. Current Interpretive Data was last revised on 2017. Monocyte pct 8.4 % [facility] Comment: Interpretive Data Percent cell count reference ranges are not reported, since discordance with absolute values may lead to misinterpretation of CBC data. Current Interpretive Data was last revised on 2017. Eosinophil pct 4.1 % [facility] Comment: Interpretive Data Percent cell count reference ranges are not reported, since discordance with absolute values may lead to misinterpretation of CBC data. Current Interpretive Data was last revised on 2017. Basophil pct 1.1 % [facility] Comment: Interpretive Data Percent cell count reference ranges are not reported, since discordance with absolute values may lead to misinterpretation of CBC data. Current Interpretive Data was last revised on 2017. Blood 09/08/2024 8:50 AM CRIMINAL INTELLIGENCE SPECIALIST 09/08/2024 9:07 AM CRIMINAL INTELLIGENCE SPECIALIST us Israel Gallardo MD LAB BLOOD ORDERABLES Daniela hernández Result [facility] Department [place] [address] * (ABNORMAL) CBC with auto differential (09/08/2024 8:50 AM CRIMINAL INTELLIGENCE SPECIALIST) [facility] WBC 6.4 3.8 - 9.9 K/cumm Hgb 12.6(L) 13.0 - 17.5 g/dL [facility] Hct 35.6(L) 38.9 - 50.3 % [facility] Plt 194 150 - 400 K/cumm [facility] MPV 9.4 9.1 - 12.3 fL [facility] RBC 4.11(L) 4.30 - 5.80 M/cumm [facility] MCV 86.6 81.3 - 96.4 fL [facility] MCH 30.7 27.1 - 33.3 pg [facility] MCHC 35.4 32.3 - 35.7 g/dL [facility] RDW CV 13.4 11.1 - 14.9 % [facility] RDW SD 41.3 35.7 - 48.1 fL [facility] NRBC abs 0.00 0.00 - 0.01 K/cumm [facility] Blood 09/08/2024 8:50 AM CRIMINAL INTELLIGENCE SPECIALIST 09/08/2024 9:07 AM CRIMINAL INTELLIGENCE SPECIALIST us Israel Gallardo MD LAB BLOOD ORDERABLES Danieal l Result [facility] [place] [address] * Protime-INR (09/08/2024 8:50 AM CRIMINAL INTELLIGENCE SPECIALIST) [facility] PT 12.4 9.7 - 13.0 sec INR 1.14 0.90 - 1.20 [facility] Comment: Interpretive data Oral anticoagulant therapeutic ranges: Venous thromboembolism prophylaxis or treatment: 2.0-3.0 CARDIOLOGY Standard range: 2.0-3.0 High-intensity range: 2.5-3.5 Refer to indication-specific guidelines for appropriate target ranges for prosthetic heart valve replacement. Current interpretive data was last revised on 2019. Blood 09/08/2024 8:50 AM CRIMINAL INTELLIGENCE SPECIALIST 09/08/2024 9:07 AM CRIMINAL INTELLIGENCE SPECIALIST us Israel Gallardo MD LAB BLOOD ORDERABLES Daniela hernández Result JOSE [facility] [place] [address] from Last 3 Months Insurance [facility] MEDICARE [facility] Address[facility] [address] [address] [place] [address] [facility] MEDICARE ADV[facility]AGE [facility] Address: [address] [address] [place] [address] MEDICARE [facility] Advance Directives For more information, please contact: [phone] * Full Code (Latest Code Status on File) Date Activated Date Inactivated Comments 09/08/2024 9:40 AM 09/11/2024 3:52 PM Care Teams [employer] Quality Assurance Engineer Relationship Specialty Start Date End Date Alexander Arciniega MD PCP - General Family Medicine 12/05/22 Israel Gallardo MD [address] [place] [address] Consulting Physician Neurosurgery 09/11/24
--- OUTSIDE RECORDS SUMMARY | 2024-11-27 08:24 | XMS_ITS | Clinical Summary ---
Author Organization [facility] Address [address] [place] [id number] Care Team Providers Care Numerical Control Tool Programmer Name Role Phone Alexander Arciniega MD Primary Care Provider [phone] Israel Gallardo MD Unavailable [phone] Allergies No known active allergies Medications allopurinoL [...] 01/23/2023 Screening PSA (prostate specific antigen) 2022 Encounters Date Type Department Care Team Description 11/24/2024 10:20 AM CDT Office Visit [facility] Endocrinology Metabolism and Lipid [address] [place] [address] Floor 1, [address] [place] [phone] Tram Herring MD Pituitary adenoma (HCC) (Primary Dx); Secondary hypothyroidism; Secondary male hypogonadism; Vitamin D deficiency 09/23/2024 4:00 PM MARINE FARMER Telemedicine [facility] Neurosurgery [facility] Floor 1, [address] [place] [phone] Israel Gallardo MD NPH (normal pressure hydrocephalus) (HCC) (Primary Dx) 09/08/2024 9:13 AM MARINE FARMER - 09/11/2024 11:52 AM MARINE FARMER Hospital Encounter [address] [phone] Israel Gallardo MD NPH (normal pressure hydrocephalus) (HCC) (Primary Dx) Discharge Disposition: Discharge to home or self care 09/08/2024 8:50 AM MARINE FARMER Lab [address] 1st [place] [phone] NPH (normal pressure hydrocephalus) (HCC); Other cerebrovascular disease 09/08/2024 8:39 AM MARINE FARMER - 09/08/2024 11:59 PM MARINE FARMER Hospital Encounter [facility] Neuro Interventional Radiology [address] [place] [id number] NPH (normal pressure hydrocephalus) (HCC) Discharge Disposition: Discharge to home or self care 09/08/[address] 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 Family History Medical History Relation Name Comments Heart attack Father Heart disease Father Heart attack Mother anson zapata Heart disease Mother anson zapata Relation Name Status Comments Father Mother anson zapata Social History Tobacco Use Types Packs/Day Years [...] on file Legal Sex Male 2:31 AM MARINE FARMER Gender Identity Not on file Sexual Orientation Not on file Occupation Industry Job Start Date Job End Date Retired Not on file Not on file Not on file Obstetrics History Last Filed Vital Signs Vital Sign Reading Time Taken Comments Blood Pressure 122/78 11/24/2024 9:56 AM CDT Pulse 65 11/24/2024 9:56 AM CDT Temperature 36.7 C (98.1 F) 09/11/2024 11:19 AM MARINE FARMER Respiratory Rate 17 11/24/2024 9:56 AM CDT Oxygen Saturation 100% 11/24/2024 9:56 AM CDT Inhaled Oxygen Concentration - - Weight 81.7 kg (180 lb 3.2 oz) 11/24/2024 9:56 A M CDT Height 182.9 cm (6') 11/24/2024 9:56 AM CDT Body Mass Index 24.44 11/24/2024 9:56 AM CDT Plan of Treatment Health Maintenance Due Date Last Done Comments DTaP/Tdap/Td Vaccine (1 - Tdap) 1954 Hepatitis B Screening 1961 Pneumococcal vaccine 65+ (1 of 1 - PCV) 1993 Zoster Vaccine (1 of 2) 1993 Well Visit 65+ 2008 Influenza Vaccine (Season Ended) 2025 04/19/20 23 Depression Screening 08/25/2025 08/25/2024 Fall Risk Assessment 09/11/2025 09/11/2024 Procedures Procedure Name Priority Date/Time Associated Diagnosis Comments EGFR Routine 09/10/2024 11:05 PM MARINE FARMER BASIC METABOLIC PANEL Routine 09/10/2024 11:05 PM MARINE FARMER CBC WITHOUT DIFFERENTIAL Routine 09/10/2024 11:05 PM MARINE FARMER EGFR Routine 09/09/2024 11:30 PM MARINE FARMER BASIC METABOLIC PANEL Routine 09/09/2024 11:30 PM MARINE FARMER CBC WITHOUT DIFFERENTIAL Routine 09/09/2024 11:30 PM MARINE FARMER URINALYSIS AND REFLEX TO MICROSCOPIC AND CULTURE STAT 09/09/2024 2:20 PM MARINE FARMER EGFR Routine 09/08/2024 9:32 PM MARINE FARMER BASIC METABOLIC PANEL Routine 09/08/2024 9:32 PM MARINE FARMER CBC WITHOUT DIFFERENTIAL Routine 09/08/2024 9:32 PM MARINE FARMER ALZHEIMER S DISEASE EVALUATION, CSF Routine 09/08/2024 2:08 PM MARINE FARMER IR LUMBAR PUNCTURE, DIAGNOSTIC INCL FLUORO GUIDANCE Schedule Routine, Read Routine (OP Routine) 09/08/2024 2:01 PM MARINE FARMER NPH (normal pressure hydrocephalus) (HCC) XR CHEST 1 VIEW IP Routine 09/08/2024 1:03 PM MARINE FARMER B CHECK SAMPLE STAT 09/08/2024 12:37 PM MARINE FARMER ECG 12-LEAD STAT 09/08/2024 11:23 AM MARINE FARMER POCT GLUCOSE DEVICE Routine 09/08/2024 11:16 AM MARINE FARMER EGFR STAT 09/08/2024 11:06 AM MARINE FARMER TYPE AND SCREEN STAT 09/08/2024 11:06 AM MARINE FARMER PHOSPHORUS STAT 09/08/2024 11:06 AM MARINE FARMER MAGNESIUM STAT 09/08/2024 11:06 AM MARINE FARMER COMPREHENSIVE METABOLIC PANEL STAT 09/08/2024 11:06 AM MARINE FARMER DIFFERENTIAL AUTO Routine 09/08/2024 8:5 0 AM MARINE FARMER NPH (normal pressure hydrocephalus) (HCC) CBC WITH AUTO DIFFERENTIAL Routine 09/08/2024 8:50 AM MARINE FARMER NPH (normal pressure hydrocephalus) (HCC) PROTIME-INR Routine 09/08/2024 8:50 AM MARINE FARMER NPH (normal pressure hydrocephalus) (HCC) Other cerebrovascular disease from Last 3 Months Results * (ABNORMAL) eGFR (09/10/2024 11:05 PM MARINE FARMER) eGFR 46(L) >=60 mL/min/1. 73 m2 Comment: [...] reviewed 2021. Blood 09/10/2024 11:0 5 PM MARINE FARMER 09/10/2024 11:36 PM MARINE FARMER Debbie Booker NP LAB BLOOD ORDERABLES [facility] Result [facility] [place] [address] * (ABNORMAL) CBC without differential (09/10/2024 11:05 PM MARINE FARMER) WBC 4.5 3.8 - 9.9 K/cumm Hgb 11.7(L) 13.0 - 17.5 g/dL [facility] Hct 32.7(L) 38.9 - 50.3 % [facility] Plt 147(L) 150 - 400 K/cumm [facility] MPV 9.6 9.1 - 12.3 fL [facility] RBC 3.76(L) 4.30 - 5.80 M/cumm [facility] MCV 87.0 81.3 - 96.4 fL [facility] MCH 31.1 27.1 - 33.3 pg [facility] MCHC 35.8(H) 32.3 - 35.7 g/dL [facility] RDW CV 13.1 11.1 - 14.9 % [facility] RDW SD 41.2 35.7 - 48.1 fL [facility] NRBC abs 0.00 0.00 - 0.01 K/cumm [facility] Blood 09/10/2024 11:0 5 PM MARINE FARMER 09/10/2024 11:37 PM MARINE FARMER Debbie Booker NP LAB BLOOD ORDERABLES Fi nal Result [facility] [place] [address] * (ABNORMAL) Basic metabolic panel (09/10/2024 11:05 PM MARINE FARMER) Pathologist [facility] Sodium 141 135 - 145 mmol/L Potassium, pl 4.4 3.3 - 4.9 mmol/L [facility] Chloride 109 97 - 110 mmol/L [facility] CO2 25 22 - 32 mmol/L [facility] Anion gap 7 2 - 15 mmol/L [facility] BUN 27(H) 6 - 25 mg/dL [facility] Creatinine 1.50(H) 0.80 - 1.30 mg/dL [facility] Glucose 92 70 - 199 mg/dL [facility] Comment: Interpretive Data Fasting glucose >/= 126 [...] 2022. Calcium 9.0 8.5 - 10.3 mg/dL [facility] Blood 09/10/2024 11:0 5 PM MARINE FARMER 09/10/2024 11:36 PM MARINE FARMER Debbie Booker NP LAB BLOOD ORDERABLES Fi nal [facility] [place] [address] * (ABNORMAL) eGFR (09/09/2024 11:30 PM MARINE FARMER) [facility] eGFR 48(L) >=60 mL/min/1. 73 m2 Comment: [...] reviewed 2021. Blood 09/09/2024 11:3 0 PM MARINE FARMER 09/10/2024 12:20 AM MARINE FARMER Debbie Booker NP LAB BLOOD ORDERABLES Fi nal Result [facility] [place] [address] * (ABNORMAL) CBC without differential (09/09/2024 11:30 PM MARINE FARMER) [facility] WBC 4.6 3.8 - 9.9 K/cumm Hgb 11.1(L) 13.0 - 17.5 g/dL [facility] Hct 31.6(L) 38.9 - 50.3 % [facility] Plt 140(L) 150 - 400 K/cumm [facility] MPV 9.2 9.1 - 12.3 fL [facility] RBC 3.57(L) 4.30 - 5.80 M/cumm [facility] MCV 88.5 81.3 - 96.4 fL [facility] MCH 31.1 27.1 - 33.3 pg [facility] MCHC 35.1 32.3 - 35.7 g/dL [facility] RDW CV 13.0 11.1 - 14.9 % [facility] RDW SD 41.9 35.7 - 48.1 fL [facility] NRBC abs 0.00 0.00 - 0.01 K/cumm [facility] Blood 09/09/2024 11:3 0 PM MARINE FARMER 09/10/2024 12:20 AM MARINE FARMER Debbie Booker NP LAB BLOOD ORDERABLES Fi nal Result [facility] [place] [address] * (ABNORMAL) Basic metabolic panel (09/09/2024 11:30 PM MARINE FARMER) Pathologist [facility] Sodium 142 135 - 145 mmol/L Potassium, pl 4.2 3.3 - 4.9 mmol/L [facility] Chloride 108 97 - 110 mmol/L [facility] CO2 23 22 - 32 mmol/L [facility] Anion gap 11 2 - 15 mmol/L [facility] BUN 26(H) 6 - 25 mg/dL [facility] Creatinine 1.47(H) 0.80 - 1.30 mg/dL [facility] Glucose 104 70 - 199 mg/dL [facility] Comment: Interpretive Data Fasting glucose >/= 126 [...] 2022. Calcium 9.0 8.5 - 10.3 mg/dL [facility] Blood 09/09/2024 11:3 0 PM MARINE FARMER 09/10/2024 12:20 AM MARINE FARMER Debbie Booker NP LAB BLOOD ORDERABLES Fi nal Result [facility] [place] [address] * Urinalysis reflex to microscopic and culture Urine, clean voided (09/09/2024 2:20 PM MARINE FARMER) Color, ur Straw Yellow Clarity, ur Clear Clear [facility] Specific gravity, ur 1.020 1.003 - 1.030 [facility] pH, urine 6.0 [facility] Comment: Interpretive Data U rine pH is affected by diet, medications, systemic acid-base disturbances, and renal tubular function. pH may affect urinary stone formation. For example, urine pH below 6.0 may help reduce the tendency for calcium phosphate stones and pH greater than 6.0 may reduce the tendency for uric acid stone formation. Source: [facility] Current Interpretive Data was last revised on 2017 Protein, ur ql Negative Negative [facility] Glucose, ur ql Negative Negative [facility] Ketones, ur Negative Negative [facility] Bilirubin, ur Negative Negative [facility] Blood, ur Negative Negative [facility] Urobilinogen, ur <2.0 <2.0 mg/dL [facility] Nitrite, ur Negative Negative [facility] Leukocyte esterase, ur Negative Negative [facility] UA reflex comment Reflex conditions for microscopic UA and culture not met. [facility] Urine, clean voided 09/09/2024 2:20 PM MARINE FARMER 09/09/2024 3:26 PM MARINE FARMER Debbie Booker NP LAB MICROBIOLOGY - GENE RAL ORDERABLES Final Result [facility] [place] [address] * (ABNORMAL) eGFR (09/08/2024 9:32 PM MARINE FARMER) [facility] eGFR 49(L) >=60 mL/min/1. 73 m2 Comment: [...] last reviewed 2021. Blood 09/08/2024 9:32 PM MARINE FARMER 09/08/2024 10:29 PM MARINE FARMER Debbie Booker CHEF UNDER LAB BLOOD ORDERABLES nal Result [facility] Department [place] [address] * (ABNORMAL) CBC without differential (09/08/2024 9:32 PM MARINE FARMER) [facility] WBC 5.2 3.8 - 9.9 K/cumm Hgb 11.1(L) 13.0 - 17.5 g/dL [facility] Hct 31.3(L) 38.9 - 50.3 % [facility] Plt 159 150 - 400 K/cumm [facility] MPV 10.0 9.1 - 12.3 fL [facility] RBC 3.56(L) 4.30 - 5.80 M/cumm [facility] MCV 87.9 81.3 - 96.4 fL [facility] MCH 31.2 27.1 - 33.3 pg [facility] MCHC 35.5 32.3 - 35.7 g/dL [facility] RDW CV 13.2 11.1 - 14.9 % [facility] RDW SD 41.4 35.7 - 48.1 fL [facility] NRBC abs 0.00 0.00 - 0.01 K/cumm [facility] Blood 09/08/2024 9:32 PM MARINE FARMER 09/08/2024 10:29 PM MARINE FARMER Debbie Booker NP LAB BLOOD ORDERABLES Fi nal Result [facility] [place] [address] * (ABNORMAL) Basic metabolic panel (09/08/2024 9:32 PM MARINE FARMER) Sodium 144 135 - 145 mmol/L Potassium, pl 3.8 3.3 - 4.9 mmol/L [facility] Chloride 111(H) 97 - 110 mmol/L [facility] CO2 23 22 - 32 mmol/L [facility] Anion gap 10 2 - 15 mmol/L [facility] BUN 28(H) 6 - 25 mg/dL [facility] Creatinine 1.44(H) 0.80 - 1.30 mg/dL [facility] Glucose 96 70 - 199 mg/dL [facility] Comment: Interpretive Data Fasting glucose >/= 126 [...] 2022. Calcium 8.8 8.5 - 10.3 mg/dL [facility] Blood 09/08/2024 9:32 PM MARINE FARMER 09/08/2024 10:29 PM MARINE FARMER Debbie Booker NP LAB BLOOD ORDERABLES Fi nal Result [facility] [place] [address] * Alzheimer???s disease evaluation, CSF (09/08/2024 2:08 PM MARINE FARMER) AD Interpretation Negative Negative Comment: Interpretive Data A cerebrospinal fluid P-Acz871 to Abeta42 ratio > 0.028 has been shown in clinical studies to have a positive agreement of 90.9% and a negative agreement of 89.2% with amyloid PET ([place] Food and Drug Administration). An Abeta42 concentration > 2,500 pg/mL, even in the context of P-Frn822 to Abeta42 ratio > 0.028, is not consistent with the presence of amyloid pathology. This test is not intended as a standalone test to diagnose Alzheimer s disease and the results must be integrated into a comprehensive clinical evaluation. Failure to adhere to collection instructions in the Lab Test Catalog may yield falsely increased p-Drd731 / Abeta42 ratios. [place] Food and Drug Administration. FDA Application for CSF Elecsys test. [cited 2022; Available from: https://www.accessdata.fda.gov/cdrh_docs/reviews/U750657.pdf Alzheimer's & dementia : the journal of the Alzheimer's Association 2018; 14(11): 1470-81. Sebastian HENLEY Jr., Cheng DA, Chemo K, Satish MC, Cecille B, Randy LAUGHLIN, et al. EDWARD-AA Anupam marlee NR, Fannie B, Diana Y, Ganga BA, Ross Y, Ghassan K, et al. CSF tau phosphorylation occupancies at T217 and T205 represent improved biomarkers of amyloid and tau pathology in Alzheimer s disease. Nature Aging 2022. Cognitively healthy elderly. [cited October 22, 2023]; Available from: https://biofinder.se/biofinder_cohorts/sebkatjwzpp-fkdsxfa-candsfv/ Celena Alcocer, Altaf Bell, Judy E, Isaac [...] on 2023. p-Tau/Abeta42 0.0147 <=0.0280 Ratio [facility] Comment: Interpretive Data A cerebrospinal fluid P-Agj142 to Abeta42 ratio > 0.028 has been shown in clinical studies to have a positive agreement of 90.9% and a negative agreement of 89.2% with amyloid PET ([place] Food and Drug Administration). An Abeta42 concentration > 2,500 pg/mL, even in the context of P-Mtx632 to Abeta42 ratio > 0.028, is not consistent with the presence of amyloid pathology. This test is not intended as a standalone test to diagnose Alzheimer s disease and the results must be integrated into a comprehensive clinical evaluation. Failure to adhere to collection instructions in the Lab Test Catalog may yield falsely increased p-Pgr564 / Abeta42 ratios. US Food and Drug Administration. FDA Application for CSF Elecsys test. [cited 2022; Available from: https://www.accessdata.fda.gov/cdrh_docs/reviews/X980144.pdf Alzheimer's & dementia : the journal of the Alzheimer's Association 2018; 14(11): 1470-81. Sebastian HENLEY Jr., Cheng PATEL, Chemo Larkin, Satish PHILIP, Cecille Jennings, Randy LAUGHLIN, et al. EDWARD-AA Anupam marlee NR, Fannie B, Diana Y, Ganga PICKENS, Ross Y, Ghassan K, et al. CSF tau phosphorylation occupancies at T217 and T205 represent improved biomarkers of amyloid and tau pathology in Alzheimer s disease. Nature Aging 2022. Cognitively healthy elderly. [cited October 22, 2023]; Available from: https://biofinder.se/biofinder_cohorts/degdjeikjaa-ywmoifl-rutrxga/ Celena Alcocer, Altaf Bell, Judy E, Isaac [...] Ganga PICKENS, Zarina C, Jovanny Islas, Jesus Omer, et al. Cerebrospinal fluid biomarkers measured by Elecsys assays compared to amyloid imaging. Alzheimer's & dementia : the journal of the Alzheimer's Association 2018; 14(11): 1460-9. Current Interpretive Data was last revised on 2023. Abeta42 1,624 >=514 pg/mL [facility] Comment: Interpretive Data The cerebrospinal fluid Abeta42 concentration alone should not be used to assess for the presence of amyloid pathology, as the P-Bvv503 to Abeta42 ratio is significantly more accurate in classifying individuals with and without amyloid pathology (Celena et al., 2018; Annabelle et al., 2018). A low Abeta42 concentration in the context of normal P-Udl454 and total tau may be consistent with Alzheimer-related pathological change (Sebastian et al., 2018). An Abeta42 concentration > 2,500 pg/mL, even in the context of P-Ivg556 to Abeta42 ratio > 0.023, is not [...] CSF Elecsys test. [cited 2022; Available from: https://www.accessdata.fda.gov/cdrh_docs/reviews/V785412.pdf Alzheimer's & dementia : the journal of the Alzheimer's Association 2018; 14(11): 1470-81. Sebastian HENLEY Jr., Cheng PATEL, Chemo K, Satish PHILIP, Cecille Jennings, Randy LAUGHLIN, et al. EDWARD-AA Anupam whalen NR, Fannie B, Diana Y, Ganga PICKENS, Ross Y, Ghassan K, et al. CSF tau phosphorylation occupancies at T217 and T205 represent improved biomarkers of amyloid and tau pathology in Alzheimer s disease. Nature Aging 2022. Cognitively healthy elderly. [cited October 22, 2023]; Available from: https://biofinder.se/biofinder_cohorts/mhqlcamlfbv-ndwsslh-gpqyagr/ Celena Alcocer, Altaf J, Judy E, Isaac [...] on 2023. Phospho-Tau(181P) 23.8 <=40.9 pg/mL [facility] Comment: Interpretive Data The cerebrospinal fluid P-Bfr378 concentration alone should not be used to assess for the presence of neurofibrillary tangle pathology, as studies have found that P- Ydf255 is more strongly associated with amyloid pathology than neurofibrillary tangle pathology (Anupam whlaen et al., 202). A low Abeta42 concentration in the context of normal P- Lek046 and total tau may be consistent with [...] CSF Elecsys test. [cited 2022; Available from: https://www.accessdata.fda.gov/cdrh_docs/reviews/O111849.pdf Alzheimer's & dementia : the journal of the Alzheimer's Association 2018; 14(11): 1470-81. Sebastian HENLEY Jr., Cheng DA, Chemo K, Satish PHILIP, Cecille Jennings, Randy LAUGHLIN, et al. EDWARD-AA Anupam marlee NR, Fannie B, Diana Y, Ganga PICKENS, Ross Y, Ghassan K, et al. CSF tau phosphorylation occupancies at T217 and T205 represent improved biomarkers of amyloid and tau pathology in Alzheimer s disease. Nature Aging 2022. Cognitively healthy elderly. [cited October 22, 2023]; Available from: https://biofinder.se/biofinder_cohorts/miteqvvkdhd-nmjktjh-hzimwpd/ Celena Alcocer, Altaf J, Judy E, Isaac [...] on 2023. Total-TAU 184 <=431 pg/mL [facility] Comment: Interpretive data The cerebrospinal fluid total tau concentration alone should not be used to assess for the presence of neurofibrillary tangle or neurodegenerative pathology. A low Abeta42 concentration in the context of normal P-Pyt507 and total tau may be consistent with [...] CSF Elecsys test. [cited 2022; Available from: https://www.accessdata.fda.gov/cdrh_docs/reviews/Z448460.pdf Alzheimer's & dementia : the journal of the Alzheimer's Association 2018; 14(11): 1470-81. Sebastian HENLEY Jr., Cheng DA, Chemo K, Satish PHILIP, Cecille Jennings, Randy LAUGHLIN, et al. EDWARD-AA Anupam marlee NR, Fannie B, Diana Y, Ganga PICKENS, Ross Y, Ghassan K, et al. CSF tau phosphorylation occupancies at T217 and T205 represent improved biomarkers of amyloid and tau pathology in Alzheimer s disease. Nature Aging 2022. Cognitively healthy elderly. [cited October 22, 2023]; Available from: https://biofinder.se/biofinder_cohorts/ooplxgvvtbi-jmjgfpf-cecrntd/ Celena Alcocer, Altaf J, Judy E, Isaac [...] revised on 2023. CSF 09/08/2024 2:08 PM MARINE FARMER 09/08/2024 3:43 PM MARINE FARMER us Israel Gallardo MD LAB GENETIC TESTING Final Result [facility] [place] [address] * IR Lumbar Puncture, Diagnostic incl Fluoro Guidance (09/08/2024 2:01 PM MARINE FARMER) Anatomical Region Laterality Modality Spine N/A Radio Fluoroscop y 09/08/2024 2:06 PM MARINE FARMER Impressions 09/08/2024 2:31 PM MARINE FARMER 1. Successful diagnostic lumbar puncture under fluoroscopic guidance for lumbar drain access. 2. The drain was placed by neurosurgery resident Dr. Carter (please see attached note). Dictated by: Bao Ragsdale D.O. The radiology attending physician has personally reviewed this study, and had reviewed and/or edited this written report and agrees with it. Electronically signed by: Nickolas Wolff MD, PhD Narrative 09/08/2024 2:31 PM MARINE FARMER EXAMINATION: Diagnostic fluoroscopically guided lumbar puncture HISTORY: [...] Electronically signed by: Nickolas Wolff MD, PhD us Israel Gallardo MD IMG FLUOROSCOPY PROCEDURE S Final Result * XR chest 1 view (Portable) (09/08/2024 1:03 PM MARINE FARMER) Anatomical Region Laterality Modality Body, Chest N/A Computed Radiogr aphy 09/08/2024 2:27 PM MARINE FARMER Impressions 09/08/2024 2:27 PM MARINE FARMER There are no prior chest radiographs available for comparison. Heart size within normal limits. Tortuous thoracic aorta seen. The lungs are clear without focal consolidation or pulmonary edema. No pneumothorax or pleural effusion seen. Electronically signed by: Richy Traore M.D. Narrative 09/08/2024 2:27 PM MARINE FARMER EXAMINATION: 1 view chest radiograph Procedure Note Richy Traore MD - 09/08/2024 EXAMINATION: 1 view chest radiograph IMPRESSION: There are no prior chest radiographs available for comparison. Heart size within normal limits. Tortuous thoracic aorta seen. The lungs are clear without focal consolidation or pulmonary edema. No pneumothorax or pleural effusion seen. Electronically signed by: Richy Traore M.D. Debbie Booker CHEF UNDER IMG XR PROCEDURES Final Result * Check Sample (09/08/2024 12:37 PM MARINE FARMER) ABO Rh A Positive [facility] OTHER 09/08/2024 12:3 7 PM MARINE FARMER 09/08/2024 12:56 PM MARINE FARMER Israel Gallardo MD LAB BLOOD ORDERABLES Daniela l Result [facility] Department [place] [address] [facility] * ECG 12 lead (09/08/2024 11:23 AM MARINE FARMER) Ventricular Rate EKG/Min 55 BPM [facility] Atrial Rate 55 BPM [facility] WY-Interval (MSEC) 208 ms [facility] QRS-Interval (MSEC) 106 ms [facility] QT-Interval (MSEC) 462 ms [facility] QTc 441 ms [facility] P [place] 40 degrees [facility] R [place] -43 degrees [facility] T [place] 58 degrees [facility] Diagnosis Sinus bradycardia Early R wave progression Left axis deviation Nonspecific T wave abnormality Abnormal ECG When compared with ECG of 12-SEP-2001 12:24, QRS axis Shifted left Nonspecific T wave abnormality now evident in Anterior leads Confirmed by KYRA CESAR M.D ([id number]) on 09/09/2024 11:14:05 AM [facility] 09/08/2024 11:2 3 AM MARINE FARMER 09/09/2024 11:14 AM MARINE FARMER us Debbie Booker CHEF UNDER ECG ORDERABLES Final R esult [facility] * POCT glucose (09/08/2024 11:16 AM MARINE FARMER) Glucose, POC 87 70 - 199 mg/dL Blood 09/08/2024 11:1 6 AM MARINE FARMER 09/08/2024 11:16 AM MARINE FARMER us Israel Gallardo MD LAB POCT ORDERABLES - DEV ICE Final Result [facility] [place] [address] * (ABNORMAL) eGFR (09/08/2024 11:06 AM MARINE FARMER) eGFR 43(L) >=60 mL/min/1. 73 m2 Comment: [...] reviewed 2021. Blood 09/08/2024 11:0 6 AM MARINE FARMER 09/08/2024 11:13 AM MARINE FARMER Debbie Booker NP LAB BLOOD ORDERABLES Fi nal Result Performing Organization Address City/[facility] Co de Phone Number [facility] [email or web address] [address] * Type and screen (09/08/2024 11:06 AM MARINE FARMER) Pathologist [facility] Leonel, indirect Negative ABO Rh A Positive [facility] Blood 09/08/2024 11:0 6 AM MARINE FARMER 09/08/2024 11:18 AM MARINE FARMER Narrative [facility] - 09/08/2024 12:15 PM MARINE FARMER Has the patient had Daratumumab or Isatuximab in the past 6 months?->Unknown Debbie Booker NP LAB BLOOD BANK TEST ORD ERABLES Final Result Performing Organization Address [facility] Co de Phone Number [facility] [email or web address] [address] * Phosphorus (09/08/2024 11:06 AM MARINE FARMER) Pathologist [facility] Phosphorus, pl 3.3 2.3 - 4.5 mg/dL Blood 09/08/2024 11:0 6 AM MARINE FARMER 09/08/2024 11:13 AM MARINE FARMER Debbie Booker NP LAB BLOOD ORDERABLES Fi nal Result Performing Organization Address [facility] Co de Phone Number [facility] [place] [address] * Magnesium (09/08/2024 11:06 AM MARINE FARMER) Magnesium 2.0 1.4 - 2.5 mg/dL Blood 09/08/2024 11:0 6 AM MARINE FARMER 09/08/2024 11:13 AM MARINE FARMER Debbie Booker CHEF UNDER LAB BLOOD ORDERABLES Fi nal Result [facility] [place] [address] * (ABNORMAL) Comprehensive metabolic panel (09/08/2024 11:06 AM MARINE FARMER) Pathologist [facility] Sodium 143 135 - 145 mmol/L Potassium, pl 4.6 3.3 - 4.9 mmol/L [facility] Chloride 111(H) 97 - 110 mmol/L [facility] CO2 25 22 - 32 mmol/L [facility] Anion gap 7 2 - 15 mmol/L [facility] BUN 29(H) 6 - 25 mg/dL [facility] Creatinine 1.59(H) 0.80 - 1.30 mg/dL [facility] Glucose 88 70 - 199 mg/dL [facility] Comment: Interpretive Data Fasting glucose >/= 126 [...] 2022. Calcium 9.3 8.5 - 10.3 mg/dL [facility] Bilirubin, total 1.3(H) 0.1 - 1.2 mg/dL [facility] Protein, pl 6.2(L) 6.5 - 8.5 g/dL [facility] Albumin 4.0 3.5 - 5.0 g/dL [facility] Alk phos 51 40 - 130 Units/L [facility] ALT 7 7 - 55 Units/L [facility] AST 14 10 - 50 Units/L [facility] Blood 09/08/2024 11:0 6 AM MARINE FARMER 09/08/2024 11:13 AM MARINE FARMER Debbie Booker CHEF UNDER LAB BLOOD ORDERABLES Fi nal Result [facility] [place] [address] * Differential, auto (09/08/2024 8:50 AM MARINE FARMER) Neutrophil abs 3.5 1.5 - 6.5 K/cumm Imm gran abs 0.0 0.0 - 0.1 K/cumm [facility] Lymphocyte abs 2.0 0.8 - 3.3 K/cumm [facility] Monocyte abs 0.5 0.2 - 0.8 K/cumm [facility] Eosinophil abs 0.3 0.0 - 0.5 K/cumm [facility] Basophil abs 0.1 0.0 - 0.1 K/cumm [facility] Neutrophil pct 54.5 % [facility] Comment: Interpretive Data Percent cell count reference ranges are not reported, since discordance with absolute values may lead to misinterpretation of CBC data. Current Interpretive Data was last revised on 2017. Imm gran pct 0.5 % [facility] Comment: Interpretive Data Percent cell count reference ranges are not reported, since discordance with absolute values may lead to misinterpretation of CBC data. Current Interpretive Data was last revised on 2017. Lymphocyte pct 31.4 % [facility] Comment: Interpretive Data Percent cell count reference ranges are not reported, since discordance with absolute values may lead to misinterpretation of CBC data. Current Interpretive Data was last revised on 2017. Monocyte pct 8.4 % [facility] Comment: Interpretive Data Percent cell count reference ranges are not reported, since discordance with absolute values may lead to misinterpretation of CBC data. Current Interpretive Data was last revised on 2017. Eosinophil pct 4.1 % [facility] Comment: Interpretive Data Percent cell count reference ranges are not reported, since discordance with absolute values may lead to misinterpretation of CBC data. Current Interpretive Data was last revised on 2017. Basophil pct 1.1 % [facility] Comment: Interpretive Data Percent cell count reference ranges are not reported, since discordance with absolute values may lead to misinterpretation of CBC data. Current Interpretive Data was last revised on 2017. Blood 09/08/2024 8:50 AM MARINE FARMER 09/08/2024 9:07 AM MARINE FARMER us Israel Gallardo MD LAB BLOOD ORDERABLES Daniela hernández Result [facility] [place] [address] * (ABNORMAL) CBC with auto differential (09/08/2024 8:50 AM MARINE FARMER) WBC 6.4 3.8 - 9.9 K/cumm Hgb 12.6(L) 13.0 - 17.5 g/dL [facility] Hct 35.6(L) 38.9 - 50.3 % [facility] Plt 194 150 - 400 K/cumm [facility] MPV 9.4 9.1 - 12.3 fL [facility] RBC 4.11(L) 4.30 - 5.80 M/cumm [facility] MCV 86.6 81.3 - 96.4 fL [facility] MCH 30.7 27.1 - 33.3 pg [facility] MCHC 35.4 32.3 - 35.7 g/dL [facility] RDW CV 13.4 11.1 - 14.9 % [facility] RDW SD 41.3 35.7 - 48.1 fL [facility] NRBC abs 0.00 0.00 - 0.01 K/cumm [facility] Blood 09/08/2024 8:50 AM MARINE FARMER 09/08/2024 9:07 AM MARINE FARMER Israel Gallardo MD LAB BLOOD ORDERABLES Daniela l Result Performing Organization Address [facility] Co de Phone Number [facility] [place] [address] * Protime-INR (09/08/2024 8:50 AM MARINE FARMER) PT 12.4 9.7 - 13.0 sec INR 1.14 0.90 - 1.20 [facility] Comment: Interpretive data Oral anticoagulant therapeutic ranges: Venous thromboembolism prophylaxis or treatment: 2.0-3.0 CARDIOLOGY Standard range: 2.0-3.0 High-intensity range: 2.5-3.5 Refer to indication-specific guidelines for appropriate target ranges for prosthetic heart valve replacement. Current interpretive data was last revised on 2019. Blood 09/08/2024 8:50 AM MARINE FARMER 09/08/2024 9:07 AM MARINE FARMER Israel Gallardo MD LAB BLOOD ORDERABLES Daniela l Result Performing Organization Address [facility] de Phone Number [facility] [place] [address] from Last 3 Months Insurance [facility] MEDICARE [facility] Address: [address] [address] [employer]HC MEDICARE ADV[facility]AGE [facility] Address: [address] [address] [place] [address] MEDICARE [facility] Advance Directives For more information, please contact: [phone] * Full Code (Latest Code Status on File) Date Activated Date Inactivated Comments 09/08/2024 9:40 AM 09/11/2024 3:52 PM Care Teams Numerical Control Tool Programmer Relationship Specialty Start Date End Date Alexander Arciniega MD PCP - General Family Medicine 12/05/22 Israel Gallardo MD [address] [place] [address] Consulting Physician Neurosurgery 09/11/24
[2024-11-27 20:02] LABS: Free T4 Free Thyroxine 1.76 ng/dL (0.78-2.19); Vitamin D 25 Hydroxy 43.6 ng/mL
[2024-11-27 20:54] LABS: Cortisol Random 3.37 ug/dL
[2024-11-28 16:15] LABS: DHEA-Sulfate 8 mcg/dL (3-225)
[2024-12-02 11:04] LABS: Testosterone Total 116 ng/dL (250-1100)
== END 2024-11-27 08:22 | disposition home or self-care (01) ==
LOC: ANHGOSHLAB 08:23
PROVIDERS: PCP Family Medicine
DX: E29.1 Testicular hypofunction (principal); E03.8 Other specified hypothyroidism; D35.2 Benign neoplasm of pituitary gland; E55.9 Vitamin D deficiency, unspecified
CPT/HCPCS: 36415; 82306; 82533; 82627; 84403; 84439

== ENCOUNTER 2025-03-23 12:43 | Outpatient (CLI) | payer MEDICARE, SELFPAY ==
--- OUTSIDE RECORDS SUMMARY | 2025-03-23 12:52 | XMS_ITS | Clinical Summary ---
Author Organization [facility] Address [address] [place] [id number] Care Team Providers [employer] Curriculum Developer Name Role Phone Alexander Arciniega MD Primary Care Provider [phone] Israel Gallardo MD Unavailable [phone] Allergies No known active allergies Medications allopurinoL (ZYLOPRIM) 300 mg tablet Take 1 tablet (300 mg total) by mouth daily 10/18/2022 Active lisinopriL (PRINIVIL,ZESTR IL) 20 mg tablet Take 1 tablet (20 mg total) by mouth daily 10/10/2022 Active cyanocobalamin, vitamin B-12, 1,000 mcg/mL kit Inject as directed Active acetaminophen (TYLENOL) 325 mg tabletIndicatio ns:Pain Take 2 tablets (650 mg total) by mouth every 4 (four) hours as needed for pain 09/11/2024 Active hydrocortisone (CORTEF) 5 mg tablet Take 10mg in the morning and 5mg at 2pm 90 tablet 11 12/10/2024 Active syringe with needle (BD Luer-Ambrose Syringe) 3 mL 25 x 5/8 syringe Use to inject rescue steroid in upper arm (deltoid) muscle once daily as directed. 2 each 2 12/11/2024 Active dexAMETHasone (DECADRON) 4 mg/mL injection Inject 4 mg (1 mL) into the upper arm muscle (deltoid) once daily as needed when you cannot keep your oral steroids down due to nausea/vomiti ng. 2 mL 2 12/11/2024 Active levothyroxine (SYNTHROID) 88 mcg tabletIndicatio ns:Secondary hypothyroidism, Pituitary adenoma (HCC) Take 1 tablet by mouth once daily 30 tablet 5 12/15/2024 Active testosterone 20.25 mg/1.25 gram (1.62 %) gel in metered-dose pump APPLY 1.5 PUMP PRESSES ONCE DAILY 75 g 5 12/18/2024 Active Active Problems Problem Noted Date Diagnosed Date [...] on file Legal Sex Male 2:31 AM [employer]DUCTOR YARD Gender Identity Not on file Sexual Orientation Not on file Occupation Industry Job Start Date Job End Date Retired Not on file Not on file Not on file Obstetrics History Last Filed Vital Signs Vital Sign Reading Time Taken Comments Blood Pressure 111/68 12/07/2024 1:25 PM CDT Pulse 66 12/07/2024 1:25 PM CDT Temperature 36.7 C (98.1 F) 09/11/2024 11:19 AM CONDUCTOR YARD Respiratory Rate 18 12/07/2024 1:25 PM CDT Oxygen Saturation 100% 11/24/2024 9:56 AM [...] 1993 Well Visit 65+ 2008 Influenza Vaccine (#1) 2025 04/19/2023 Depression Screening 08/25/2025 08/25/2024 Fall Risk Assessment 09/11/2025 09/11/2024 Insurance [facility] MEDICARE ADVANTAGE U[employer] MEDICARE ADVANTAGE MEDICARE [facility] Advance Directives For more information, please contact: [phone] * Full Code (Latest Code Status on File) Date Activated Date Inactivated Comments 09/08/2024 9:40 AM 09/11/2024 3:52 PM Care Teams School Curriculum Developer Relationship Specialty Start Date End Date Alexander Arciniega MD PCP - General Family Medicine 12/05/22 Israel Gallardo MD [address] [place] [address] Consulting Physician Neurosurgery 09/11/24
[2025-03-23 15:38] LABS: Hematocrit 35.9 % (42.0-52.0); Hemoglobin 12.2 g/dL (14.0-18.0); Immature Granulocyte Percent A 0.4 % (0-0.5); Lymphocytes Absolute Auto 1.40 K/mm3 (0.9-3.2); Mean Corpuscular HGB Conc 34.0 g/dl (32-36); Mean Corpuscular Hemoglobin 31.5 pg (26-34); Mean Corpuscular Volume 92.8 fl (80-100); Nucleated Red Blood Cells Absolute Auto 0.000 K/mm3 (0.0-0.012); Nucleated Red Blood Cells Perc 0.0 % (0.0-0.2); Platelet Count Result 173 k/mm3 (150-375); Red Blood Count 3.87 M/mm3 (4.6-6.20); White Blood Count 5.1 K/mm3 (4.5-10.0)
[2025-03-23 16:52] LABS: Alanine Aminotransferase 13 U/L (6-50); Albumin Level 3.7 g/dL (3.5-5.1); Alkaline Phosphatase 56 U/L (38-126); Anion Gap 7 mmol/L (4-12); Aspartate Amino Transferase 35 U/L (17-59); Bilirubin,Total 1.0 mg/dL (0.2-1.3); Blood Urea Nitrogen 17 mg/dL (9-20); Calcium 9.1 mg/dL (8.4-10.2); Carbon Dioxide 24 mmol/L (22-30); Chloride 111 mmol/L (98-107); Estimated Glomerular Filt Rate 54; Glucose 100 mg/dL (65-110); Potassium 4.1 mmol/L (3.4-5.0); Sodium 142 mmol/L (137-145); Total Protein 6.3 g/dL (6.3-8.2); Uric Acid 4.0 mg/dL (3.5-8.5)
[2025-03-23 17:28] LABS: Thyroid Stimulating Hormone 0.018 uIU/mL (0.465-4.680)
[2025-03-23 17:46] LABS: Vitamin B12 838.0 pg/mL (239-931)
== END 2025-03-23 12:44 | disposition home or self-care (01) ==
LOC: ANHGOSHLAB 12:45
PROVIDERS: PCP Family Medicine; Visit Provider Family Medicine
DX: E03.9 Hypothyroidism, unspecified (principal); N18.30 Chronic kidney disease, stage 3 unspecified; D51.0 Vitamin B12 deficiency anemia due to intrinsic factor deficiency
CPT/HCPCS: 36415; 80053; 82607; 84443; 84550; 85025